=== PATIENT | female | born 1955 | race Caucasian/White ===

== ENCOUNTER → 2020-03-10 08:14 | Outpatient (BNVA) | payer MEDICARE, OTHER, SELFPAY | PROVIDERS: Family Provider Family Medicine; PCP Family Medicine; Visit Provider Specialist | DX: Z98.890 Other specified postprocedural states (principal); M17.0 Bilateral primary osteoarthritis of knee | CPT/HCPCS: 73560; 73565 ==

== ENCOUNTER → 2020-07-03 | Day surgery (SDC) | payer MEDICARE, OTHER, SELFPAY | PROVIDERS: PCP Family Medicine; Visit Provider Specialist | DX: Z01.818 Encounter for other preprocedural examination (principal); M17.11 Unilateral primary osteoarthritis, right knee | CPT/HCPCS: 93005 ==

== ENCOUNTER → 2020-07-11 12:39 | Outpatient (BNVA) | payer MEDICARE, OTHER, SELFPAY | PROVIDERS: PCP Family Medicine; Visit Provider Specialist | DX: M17.11 Unilateral primary osteoarthritis, right knee (principal) | CPT/HCPCS: 87635 ==

== ENCOUNTER 2020-07-15 10:34 | Observation (INO) | payer MEDICARE, OTHER, SELFPAY ==
[2020-07-03 11:16] LABS: Add Urine Microscopic? NO
[2020-07-03 11:21] LABS: Bilirubin Urine Neg (Negative); Blood Urine Neg (Negative); Glucose Urine UA Norm (Normal); Ketones Urine Negative (Negative); Leukocyte Esterase Urine Negative (Negative); Nitrate Urine Negative (Negative); Protein Urine Neg (Negative); Specific Gravity, Urine 1.015 (1.005-1.030); Urine Appearance Clear (CLEAR); Urine Color Yellow (Yellow); Urobilinogen Urine Norm (Negative); pH Urine 5 (5-7)
[2020-07-03 11:33] LABS: Basophils # 0.1 10^3/uL (0.0-0.1); Basophils % 0.6 %; Eosinophils # 0.2 10^3/uL (0.0-0.8); Eosinophils % 2.4 %; Hematocrit 45.5 % (37.0-47.0); Hemoglobin 14.8 g/dL (11.5-15.3); Lymphocytes # 2.1 10^3/uL (0.8-4.8); Lymphocytes % 26.4 %; Mean Corpuscular HGB Conc 32.5 g/dL (30.0-36.0); Mean Corpuscular Hemoglobin 28.8 pg (28.0-34.0); Mean Corpuscular Volume 88.5 fL (81-99); Mean Platelet Volume 9.5 fL (7.4-10.4); Monocytes % 11.8 %; Neutrophils # 4.74 10^3/uL (1.8-7.7); Neutrophils % 58.6 %; Nucleated Red Blood Cells % 0 %; Platelet Count 411 10^3/cmm (130-400); Red Blood Count 5.14 10^6/uL (4.1-5.3); Red Cell Distribution Width 12.1 % (12.1-15.1); White Blood Count 8.1 10^3/uL (4.0-10.0)
[2020-07-03 11:50] LABS: Alanine Aminotransferase 17 U/L (0-33); Albumin Level 4.5 g/dL (3.5-5.2); Alkaline Phosphatase 158 IU/L (35-105); Anion Gap 13.5 (5-19); Aspartate Amino Transferase 15 U/L (0-32); Blood Urea Nitrogen 18 mg/dL (8-23); Calcium 9.9 mg/dL (8.5-10.5); Carbon Dioxide 31 mmol/L (22-29); Chloride 98 mmol/L (98-107); Globulin 3.3 g/dL (1.3-4.6); Glomerular Filtration Rate 100.6 mL/min (90-130); Glucose 92 mg/dL (65-115); Osmolality Calculated 290 mOsm/kg (285-295); Potassium 3.5 mmol/L (3.5-5.1); Sodium 139 mmol/L (136-145); Total Bilirubin 0.3 mg/dL (0.15-1.2); Total Protein 7.8 g/dL (6.6-8.7)
--- NOTE | 2020-07-03 11:53 | ECG_ITS ---
[facility] Test Date: 2020-07-03 Pat Name: Anny Crystal Department: Room: Gender: Female Bi Tester: : 1955 Requested By: Saman Espinoza Order Number: [id number] Jeronimo MD: Latrice Skinner M.D. Measurements Intervals [place] Rate: 74 P: 17 HI: 148 QRS: -15 QRSD: 100 T: 24 QT: 370 QTc: 411 Interpretive Statements SINUS RHYTHM VOLTAGE CRITERIA FOR LVH [MEETS CRITERIA IN ONE OF: R(aVL), S(V1), R(V5), R(V5/V6)+S(V1)] POSSIBLE ANTERIOR MYOCARDIAL INFARCTION [30 ms Q WAVE IN V3/V4, OR R < 0.2 mV IN V4], PROBABLY OLD Compared to ECG 05/25/2018 10:00:37 Left ventricular hypertrophy now present Myocardial infarct finding now present Sinus tachycardia no longer present T-wave abnormality no longer present Electronically Signed On 07-04-2020 23:22:04 CDT by Latrice Skinner M.D. [id number]
[2020-07-03 12:40] VITALS: PULSE 65; RESP 18; O2SAT 95
--- NOTE | 2020-07-03 14:07 | ANES.PREANE2 ---
Pre-Anesthetic Assessment Pre-Anesthetic Assessment: Height/Weight: Height 1.57 m Weight 82.1 kg Pulse Resp Pulse Ox 65 18 95 07/03/20 12:40 07/03/20 12:40 07/03/20 12:40 Preop Diagnosis: Primary osteoarthritis right knee Proposed Procedure: Operation Date: 07/15/20 07:30 Proposed Procedures p Total Knee Arthroplasty Right 03281 M17.11(Right) - Genevieve Saucedo MD Was Beta Feliz taken within 24 hours: N/A Was Clonidine taken within 24 hours: N/A Social: Social History: No alcohol and No tobacco Exam: Pre-Anes Outpt Exam: alert, oriented x 3, clear to auscultation bilaterally and regular rate & rhythm Airway: Submandibular: WNL Cervical ROM: WNL MP: 2 GI: GI: GERD Metabolic: Metabolic: Morbid obesity Musc/skel: Musc/skel: OA/DJD Anesthetic Plan: ASA status: 2 Anesthesia: Regional (specify below) Other: SAB/adductor Risk of > 500 ml blood loss (7ml/kg in children): No PFSH Anesthesia PFSH: Medical History Degenerative arthritis of right knee GERD (gastroesophageal reflux disease) Surgical History History of arthroscopic knee surgery right knee arthroscopy with resection lateral meniscus. DOS: 01/18/[address] Smith Social History Smoking and tobacco status: never smoked Alcohol intake: never Data Anesthesia CBC & Chem 7: 07/03/20 11:28 07/03/20 11:28 Other Labs: Laboratory Results - last 48 hr 07/03/20 07/03/20 07/03/20 10:29 11:28 11:28 WBC 8.1 RBC 5.14 Hgb 14.8 Hct 45.5 MCV 88.5 MCH 28.8 MCHC 32.5 RDW 12.1 Plt Count 411 H MPV 9.5 Neut % (Auto) 58.6 Lymph % (Auto) 26.4 [place] % (Auto) 11.8 Eos % (Auto) 2.4 Baso % (Auto) 0.6 Neut # (Auto) 4.74 Lymph # (Auto) 2.1 [place] # (Auto) 1.0 H Eos # (Auto) 0.2 Baso # (Auto) 0.1 Nucleated RBC % (auto) 0 Nucleated RBCs # 0.0 Sodium 139 Potassium 3.5 Chloride 98 Carbon Dioxide 31 H Anion Gap 13.5 BUN 18 Creatinine 0.6 GFR Calculation 100.6 Glucose 92 Calculated Osmolality 290 Calcium 9.9 Total Bilirubin 0.3 AST 15 ALT 17 Alkaline Phosphatase 158 H Total Protein 7.8 Albumin 4.5 Globulin 3.3 Urine Color Yellow Urine Appearance Clear Urine pH 5 Ur Specific Mcintosh 1.015 Urine Protein Neg Urine Glucose (UA) Norm Urine Ketones Negative Urine Blood Neg Urine Nitrate Negative Urine Bilirubin Neg Urine Urobilinogen Norm Ur Leukocyte Esterase Negative Cardiac Studies: No Data to Display
[2020-07-15] VITALS (32 sets, daily range): BP systolic 117–166; BP diastolic 62–99; PULSE 51–83; RESP 15–30; TEMP 36.4–37.4; O2SAT 94–100
[2020-07-15] MEDS: acetaminophen 1,000 MG/100 ML PIGGYBACK 400 MG IV ×3 (06:24→22:28)
[2020-07-15] MEDS: sodium chloride 0.9% 1,000 ML 30 ML IV (06:24)
[2020-07-15] MEDS: CELEcoxib 200 mg Capsule 400 MG PO (06:25)
--- NOTE | 2020-07-15 06:47 | ANES.PROC ---
Anesthesia Procedures Procedure/Date: 07/15/20 Nerve Block ^: Nerve Block 1: Main Anesthesia: spinal anesthesia block Time Out Performed: Yes Consent: requested by attending/covering physician, from patient, risks and benefits reviewed and patient agrees to proceed Nerve block location: adductor canal (R) Anesthesia monitors applied: pulse oximetry, EKG, BP cuff and oxygen Nerve block position: supine Anesthetic Used: ropivicaine 0.5% and with decadron (4 mg) Amount of anesthesia used (mL): 30 Ultrasound used to: visualize and ID femerol nerve Nerve Stimulator Used?: No Interscalene/Femoral BLK: 4 stimuplex 21 g needle used for position and inplane approach, visualize local anesthetic spread and no vascular puncture identified Injection: neg aspiration of heme Patient Tolerated Procedure: well and no complications Complications: none
--- NOTE | 2020-07-15 06:49 | P.ANESUD_ITS ---
Pre-Anesthetic Update Pre-Anesthetic Assessment: Date of Surgery/Procedure: 07/15/20 Preop Sammi gnosis: Primary osteoarthritis right knee Proposed Procedure: Operation Date: 07/15/20 07:00 Proposed Procedures p Total Knee Arthroplasty Right 29681 M17.11(Right) - Genevieve Saucedo MD Any changes to Pre-Anesthetic Assessment?: No Last Intake: Intake Last Liquid Date 07/14/20 Last Liquid Time 21:00 Last Solid Date 07/14/20 Last Solid Time 21:00 Vitals: Temperature 98.1 F 07/15/20 05:57 Temperature Source Temporal Artery S can 07/15/20 05:57 Pulse Rate 73 07/15/20 05:57 Pulse Rhythm 07/15/20 05:57 Pulse Strength 3+ Normal 07/15/20 05:57 Respiratory Rate 18 07/15/20 05:57 Blood Pressure 166/93 07/15/20 05:57 Blood Pressure Radha n 117 07/15/20 05:57 Pulse Oximetry 98 07/15/20 05:57 Oxygen Delivery Me thod 07/15/20 05:57 Exam: Pre-Anes Outpt Exam: alert, oriented x 3, clear to auscultation bilaterally and regular rate & rhythm Cardiac Studies: No Data to Display
[2020-07-15] MEDS: midazolam 1 mg/mL INJ 2 mL 2 MG IVP ×2 (06:57→10:55)
--- NOTE | 2020-07-15 06:58 | P.HPUD_ITS ---
Surgery/Procedure H&P Update DATE OF PROCEDURE: July 15, 2020 DATE H&P PERFORMED: 07/02/20 H&P UPDATE INFORMATION: I have reviewed H&P completed within last 30 days, I have examined patient prior to procedure, No changes to prior documentation and H&P is in [facility] [place] date indicated PREOP DIAGNOSIS: Primary osteoarthritis right knee PLANNED PROCEDURE: Operation Date: 07/15/20 07:00 Proposed Procedures p Total Knee Arthroplasty Right 71647 M17.11(Right) - Genevieve Saucedo MD Related Problem List Diagnoses (1) Degenerative arthritis of right knee: Qualifiers: Osteoarthritis type: primary Qualified Code(s): M17.11 - Unilateral primary osteoarthritis, right knee
[2020-07-15] MEDS: vancomycin 1,000 MG in sodium chloride 0.9% 250 ML 250 MG IV (06:59)
[2020-07-15] MEDS: vancomycin 1,000 MG SDV 2000 MG IRRIGATION (07:55)
[2020-07-15] MEDS: vancomycin 1,000 MG SDV 1000 MG XX (07:55)
--- NOTE | 2020-07-15 09:42 | PM.OP ---
Operative Report Date of procedure: July 15, 2020 Pre-op Diagnosis: Primary osteoarthritis right knee Post-op diagnosis: same Post-op Findings: Significant degenerative change not only patellofemoral but also medial compartment and to a lesser degree lateral compartment Procedure Done: Right total knee arthroplasty Implants: The [employer]once total knee system with a size 4 triathlon beaded posterior stabilized femur right, a triathlon titanium tibial component size 3 beaded, a triathlon X3 posterior stabilized tibial bearing insert size 3 X 11 mm and a beaded triathlon titanium asymmetric patella size 29 x 9 mm Specimens removed/disposition: Bone, disposed of Pathology: none sent Surgeon: Genevieve Saucedo [employer] Supervisor: [employer] operating room technicians Anesthesia: MAC (With spinal and femoral block, ASA 2) Estimated blood loss (mL): 4 Tourniquet time (min): 107 Tourniquet time: At 300 mmHg IV fluids (mL): 1,000 Urine output (mL): 300 Complications: None Findings: Significant degenerative osteoarthritic change within the patellofemoral joint, but also within the medial compartment and to a lesser degree the lateral compartment. No flexion contracture. Condition: stable Disposition: PACU (Then to floor for postoperative rehabilitation and monitoring under observation status) Brief History: This 65-year-old woman presented to the office with severe right knee pain which was incapacitating. She was unable to ambulate or perform reasonable activities of daily living. None of these activities were able to be accomplished comfortably. She was unresponsive to conservative measures and wished to proceed with right total knee arthroplasty risks and complications were discussed. Consents were signed preoperatively, and questions were answered. The patient wished to proceed. Procedure: The patient was brought to the operating theater, and after undergoing adequate spinal anesthesia supplemented with regional block and sedation, ASA 2, the right lower extremity was prepped with Dura-Prep and draped in usual fashion following placement of a tourniquet high on the leg. The leg was then draped free. Following prepping and draping, the leg was exsanguinated, and the tourniquet was elevated to 300 mmHg for a total tourniquet time of 107 minutes. Prior to elevation of the tourniquet, but following exposure of the site of surgery, a surgical pause was performed. At the time of the surgical pause, we confirmed the site and side of surgery. Additionally, we confirmed the appropriate and timely administration of preoperative antibiotics, vancomycin 1 g. and Transexemic acid 1 g. The availability of equipment was confirmed, and the patient's identity was verbalized as well. Following the surgical pause, an incision was made centering over the patella continuing proximally and distally as necessary to allow access to the knee joint. Dissection continued through skin and soft tissues using a scalpel. Hemostasis was obtained using electrocautery. The skin incision was followed by a median parapatellar arthrotomy. The leg was extended and the patella was everted. Following this, the leg was returned to flexed position. The distal femur was exposed, and a drill hole was made in this for placement of the distal femoral jig. The distal femoral jig was set at 5? of valgus. The distal femoral cutting block was then placed in appropriate position, and an faraz wing was used to confirm an appropriate amount of distal femur would be resected. The distal femoral resection was accomplished with 8 mm of bone being resected distally. After the distal femoral resection had been accomplished, the femur was measured and it measured a size 4. Medial lateral dimension also measured a size 4. A size 4 femoral cutting block was placed in position, and we were then able to accomplish the anterior, posterior and chamfer cuts. This jig was then removed and the notch guide was placed in position. With the notch guide in appropriate position, the notch was excised including resection of the anterior and posterior cruciate ligaments. This notch was to allow for the posterior stabilized femoral component. At this point, the femur was prepared and attention was directed to the proximal tibia. The posterior knee retractor was placed along with medial and lateral retractors. Further resection of the menisci was accomplished as we had better visualization. A complete meniscectomy was performed both medially and laterally with care being taken to protect the popliteus. Retractors were then placed so that the proximal tibia was well visualized. A drill hole was then made in the tibia for placement of the intramedullary guide. This guide was placed so that approximately 2 mm of bone would be resected from the deficient medial tibial plateau. The intramedullary guide was utilized supplemented with an extramedullary guide to assure appropriate alignment for the proximal tibial resection. The proximal tibial jig was then evaluated, pinned in position, and the proximal tibial resection was accomplished without difficulty. The jig was removed, and the proximal tibia was measured. It measured a size 3. We then attempted a trial reduction with a size 3 by 9 mm insert. Osteophytes were also removed from the tibia. The femoral component was placed in position for the trial reduction, and the knee was placed through range of motion. With this, there was excellent stability with excellent varus-valgus alignment with appropriate patellar tracking. Extension was noted to be full as well. After the knee was manipulated, we were able to insert a size 3 x 11 mm insert. With this we continued to have excellent varus valgus alignment and full extension. Therefore, this was the chosen component. There was full extension and flexion without lift off and the rotation of the tibia was marked. Alignment was checked from the hip to the ankle, and this was noted to be appropriate as well. Attention was then directed to the patella. The patella was measured with a caliper. We resected sufficient patella to leave approximately 14 mm of patella remaining. Measurements of the patella then indicated that a size asymmetric 29 mm x 9 mm was the appropriate patellar size. We then placed the jig to drill for the 3 pegs of the press-fit patella, and these drill holes were made without incident. A trial patella was then placed, and the knee was placed through range of motion. The patella was noted to track nicely without evidence of subluxation. The femur was prepared for a press-fit femur by drilling 2 holes for the femoral pegs. All trial components were subsequently removed. The tibial tray was then pinned into position, and we broached the tibia for the stem of the tibial component. Subsequently, 4 drill holes were made for placement of the press-fit tibia. This was accomplished without difficulty. Care was taken to assure appropriate rotation of the tibia as well as appropriate position on the proximal tibia. The tibial tray was completely seated on the proximal tibia. Following broaching, the tibial guide was removed, and all surfaces were copiously irrigated. The surfaces were then dried and a bone plug was placed into the distal femur. Exparel was also injected at this point. The Tritanium tibia was impacted into position. The beaded femur was then impacted into position in a cementless fashion. The tibial insert was placed. The patella was pressed into position with a patellar clamp. The knee was irrigated with 20 mL of Betadine and 500 mL of normal saline, and this was allowed to remain in the knee for 3-4 minutes. The knee was then copiously irrigated and suctioned dry. Attention was then directed to closure. Closure was accomplished with 0 Vicryl in the fascial tissues. Following this, a 2-0 Monocryl was used in the subcutaneous tissues, and the skin was closed with skin yenny. A sterile dressing was then placed consisting of Dermabond Prineo, opsite, 4x4's, ABD, sterile soft roll, and an Victoriano wrap. The patient was returned the Recovery Room in a satisfactory condition. X-rays were obtained there. The patient will be discharged to the floor for postoperative rehabilitation and pain management. Associated Problem List Diagnoses (1) Degenerative arthritis of right knee: Qualifiers: Osteoarthritis type: primary Qualified Code(s): M17.11 - Unilateral primary osteoarthritis, right knee
--- NOTE | 2020-07-15 09:48 | XR_ITS ---
WS: [id number] RIGHT KNEE 2 VIEWS AP and cross table lateral imaging is submitted. HISTORY: Status post right total knee arthroplasty. COMPARISON: None available. Total knee replacement prosthetic devices are in good position and alignment. Normal position of the patella. Posterior patella resurfacing changes. Numerous postsurgical sutures are noted over the ant erior knee and there are normal postoperative changes in the soft tissues consistent with air, blood and edema. No complications are evident. XR/XR knee RT 1-2V 06325 IMPRESSION: Satisfactory appearance of the recent RIGHT knee arthroplasty.
--- NOTE | 2020-07-15 10:04 | SUR.PHASEI ---
0955 PT REMAINS ASLEEP DOES NOT AWAKE TO TOUCH, ORAL AIRWAY OUT PER PT, GOOD RESP EFFORT, X RAYS DONE AT BEDSIDE, RT KNEE DRESSING D/I FIRST ICE TO KNEE DISTAL FOOT PINK WARM WITH STRONG REGULAR PULSE MARKED BILAT FOOT PUMPS ON.
--- NOTE | 2020-07-15 10:25 | SUR.PHASEI ---
PT AWAKES TO VOICE NOW, PT TAKING OCC ICE CHIPS SATS 98% ON RA, DRESSING TO RT KNEE D/I PT NOT ABLE TO MOVE FEET BUT ABLE TO MOVE GROSS UPPER THIGH AREA, PT STATES NORMAL SENSATION TO T-11, HOB AT 35 DEGREES PT BP STABLE. PT SLEEPS IF NOT DISTURBED PT WAS NOTIFIED BY DR SANTOS OF PT OUTCOMES
[2020-07-15] MEDS: diphenhydrAMINE 50 mg/mL SDV 1mL 25 MG IVP (10:36)
[2020-07-15] MEDS: diphenhydrAMINE 50 mg/mL SDV 1mL (10:50)
[2020-07-15] MEDS: naloxone 0.4 mg/ml SDV 0.2 MG IVP (11:20)
[2020-07-15] MEDS: famotidine 20 mg/2 mL INJ IVP (11:44)
[2020-07-15] MEDS: naloxone 0.4 mg/ml SDV 0.1 MG IVP (12:12)
--- NOTE | 2020-07-15 12:35 | SUR.PHASEI ---
1030 PT ALERT TO NAME ONLY, PT SCRATCHING HEAD AND ARMS AND CHEST, PT ENCOURAGED NOT TO SCRATCH, PT IS UNCONTROLLABLE, NO RASH OR WHELPS TO CHEST OR HANDS, BUT RED AREAS AND IRRITATION FROM PT SCRATCHING. DR HANDY AT BEDSIDE SEE MEDS GIVEN JPT UNCONTROLLABLE, PT SCRATGHING AND CLAWING CHEST HEAD AND ARMS, PLACED SURGICAL GLOVES ON PT AND DR HANDY AND DR SANTOS AT BEDSIDE SEE MEDS GIVEN PT AWAKE ON 3LNC NOW AFTER VERSED PT WILD AND SCRATCHING AGAIN, PT CONFUSED TO ALL BUT SELF AND ITCHING, SEE MED GIVEN TO REVERSE POSSIBLE FENTANYL ALLERGY ORDERED BY DR HANDY AT BEDSIDE, VSS 1208 [place] 20MG GIVEN ORDERED PT AWAKE ALERT TAKING SIPS OF WATER, REMAINS CONFUSED TO PLACE AND TIME AND EARLIER SURGERY BUT FOLLOWS COMMANDS WELL STATES NORMAL SENSATION TO T-13 LEVEL PT ABLE TO MOVE BILAT THIGHS ONLY 1212 NARCAN REPEATED IVP PER DR HANDY'S ORDER , PT ITCHING UNCHANGED BUT PT MORE DROWSY
--- NOTE | 2020-07-15 13:03 | SUR.PHASEI ---
1233 PT UPDATED EARLIER AT 1115 NO PROBLEMS VOICED AND PT UPDATED AT 1233 PRIOR TO TAKING PT UPSTAIRS, PT SLEEPS NOW UNLESS AWAKENED BY NURSE OR BP CUFF, PT ITCHES IF AWAKENED BUT CALMER NOW 1245 HANDOFF AT BEDSIDE TO VANITA ON FLOOR PT AWAKES AND VERBALIZED TO NURSE VANITA, BUT QUICKLY BACK TO SLEEP SATS 98% ON 3LNC.
--- NOTE | 2020-07-15 13:09 | PC.NURSE ---
Addendum entered by Nuria Beach RN 07/15/20 13:23: 1ST ICE IN PLACE TO RIGHT KNEE - PT BASELINE IS ALERT AND ORIENTATED Original Note: OR NOTE UP FROM - PT WILL AWAKEN EYES TO PAINFUL STIMULI ONLY - VSS - 02 NC AT 2L - ONCE AWAKE PT IMMEDIATELY STARTS TO SCRATCH - SCATTERED REDNESS TO CHEST AND FACE - SMALL OPEN AREA TO RIGHT ARM - GLOVES REMAIN ON PT PT HAS LONG NAILS TO TRY TO PREVENT FURTHER SKIN INJURY - AP RRR - LUNGS CTA - IV PATENT VIA PUMP TO RIGHT FA - BULKY RIGHT KNEE DRESSING C/D/I WITH NO DRAINAGE NOTED - BILE FOOT PUMPS IN PLACE WITH JERALD TO LEFT LEG - AWAITING 1:1 SITTER
[2020-07-15] MEDS: oxyCODONE 5 mg IR Tab/Cap PO (14:53)
--- NOTE | 2020-07-15 16:45 | PC.NURSE ---
1:1 discontinued 1:1 discontinued - pt awake, alert and orientated - able to state name, date, place and situation - pt states I am itching but i will not dig at my skin -
[2020-07-15] MEDS: chlorhexidine gluconate 0.12% Btl 473 mL 30 ML MUCOUS MEM ×2 (17:23→20:31)
[2020-07-15] MEDS: sennosides-docusate Tablet 2 TAB PO (17:24)
[2020-07-15] MEDS: calcium carbonate 500 mg Chew Tablet 1000 MG PO (17:24)
[2020-07-15] MEDS: iron polysaccharide complex 150 mg Capsule PO (17:24)
[2020-07-15] MEDS: aspirin 325 mg EC Tablet PO (17:24)
[2020-07-15] MEDS: CELEcoxib 200 mg Capsule PO (17:28)
--- NOTE | 2020-07-15 18:20 | PC.NURSE ---
1800 REMOVED PT FROM CPM - DARRELL WELL - PT REMAINS ALERT AND ORIENTATED - STATES SHE DOES HAVE SLIGHT ITCHING BUT DOES NOT FEEL THE NEED TO CLAW
--- NOTE | 2020-07-15 19:07 | ANE.PACU2 ---
Inpatient post-anesthesia follow up: Airway intact: Yes Vital signs: Temperature 99.4 F Pulse Rate 83 Respiratory Rate 18 Blood Pressure 143/85 Pulse Oximetry 100 Oxygen Delivery Me thod Nasal Cannula Oxygen Flow Rate 2 Fraction of Inspir ed Oxygen Hydration adequate: Yes Nausea and vomiting: No Pain level: 3 Pain level: severe itching Mental status: Altered Additional Comments: sleepy but arousable
[2020-07-15] MEDS: sodium chloride 0.9% 1,000 ML 100 ML IV (20:31)
[2020-07-15] MEDS: clindamycin 600 MG/50 ML PREMIX 100 MG IV (20:31)
[2020-07-15] MEDS: TRAMadol 50 mg Tablet PO (22:29)
[2020-07-16] MEDS: clindamycin 600 MG/50 ML PREMIX 100 MG IV ×2 (04:08→10:50)
[2020-07-16 04:36] VITALS: BP 125/62; PULSE 71; RESP 17; TEMP 37.1; O2SAT 97
[2020-07-16] MEDS: CELEcoxib 200 mg Capsule PO (05:47)
[2020-07-16] MEDS: acetaminophen 1,000 MG/100 ML PIGGYBACK 400 MG IV (05:47)
[2020-07-16 06:57] LABS: Basophils % 0.3 %; Eosinophils # 0.1 10^3/uL (0.0-0.8); Eosinophils % 0.6 %; Hematocrit 35.9 % (37.0-47.0); Hemoglobin 11.6 g/dL (11.5-15.3); Lymphocytes # 2.5 10^3/uL (0.8-4.8); Lymphocytes % 22.2 %; Mean Corpuscular HGB Conc 32.3 g/dL (30.0-36.0); Mean Corpuscular Volume 89.8 fL (81-99); Mean Platelet Volume 9.8 fL (7.4-10.4); Monocytes # 1.6 10^3/uL (0.2-0.9); Monocytes % 14.9 %; Neutrophils # 6.83 10^3/uL (1.8-7.7); Neutrophils % 61.8 %; Nucleated Red Blood Cells % 0 %; Platelet Count 297 10^3/cmm (130-400); Red Cell Distribution Width 12.5 % (12.1-15.1)
[2020-07-16 07:22] LABS: Anion Gap 10.9 (5-19); Blood Urea Nitrogen 17 mg/dL (8-23); Calcium 8.5 mg/dL (8.5-10.5); Carbon Dioxide 26 mmol/L (22-29); Chloride 105 mmol/L (98-107); Glomerular Filtration Rate 160.7 mL/min (90-130); Glucose 100 mg/dL (65-115); Osmolality Calculated 288 mOsm/kg (285-295); Potassium 3.9 mmol/L (3.5-5.1); Sodium 138 mmol/L (136-145)
[2020-07-16 08:00] VITALS: BP 111/72; PULSE 60; RESP 18; TEMP 36.9; O2SAT 95
[2020-07-16] MEDS: cholecalciferol (vitamin D3) 1,000 unit Tablet 1000 UNIT PO (08:28)
[2020-07-16] MEDS: chlorhexidine gluconate 0.12% Btl 473 mL 30 ML MUCOUS MEM ×2 (08:28→12:43)
[2020-07-16] MEDS: calcium carbonate 500 mg Chew Tablet 1000 MG PO (08:28)
[2020-07-16] MEDS: aspirin 325 mg EC Tablet PO (08:28)
[2020-07-16] MEDS: multivitamin therapeutic Tablet 1 TAB PO (08:29)
[2020-07-16] MEDS: pantoprazole DR 40 mg Tablet PO (08:29)
[2020-07-16] MEDS: iron polysaccharide complex 150 mg Capsule PO (08:29)
[2020-07-16] MEDS: sennosides-docusate Tablet 2 TAB PO (08:29)
--- NOTE | 2020-07-16 10:01 | PC.NURSE ---
PHYSICAL THERAPY UP WITH PT - PT BECAME HYPOTENSIVE WITH A BP 90/50 - DIZZY - HEART RATE AT 38-44 - RETURNED TO LAYING POSITION - HEART RATE AT 63 - PT STATES I FEEL BETTER NOW - WILL MONITOR
[2020-07-16 12:00] VITALS: BP 156/82; PULSE 71; RESP 18; TEMP 36.8; O2SAT 96
[2020-07-16] MEDS: acetaminophen 500 mg Tablet 1000 MG PO (12:43)
--- NOTE | 2020-07-16 13:33 | P.DS_ITS ---
Discharge Providers Date of Admission: 07/15/20 10:34 Date of Discharge: July 16, 2020 Attending Provider at Admission: Genevieve Saucedo MD Attending Provider at Discharge: Genevieve Saucedo MD Primary Care Provider: Constance Rodríguez MD Diagnoses at Discharge Discharge Diagnosis (1) Degenerative arthritis of right knee: Status: Acute Qualifiers: Osteoarthritis type: primary Qualified Code(s): M17.11 - Unilateral primary osteoarthritis, right knee Reason for Visit Reason for Visit: knee arthroplasty Hospital Course Hospital Course This 65-year-old woman was admitted yesterday, July 15, 2020 for same-day surgery. She underwent right total knee arthroplasty uneventfully. She was admitted to the floor postoperatively for monitoring and postoperative e valuation. While in the recovery room, the patient had significant itching which caused her to scratch quite deeply. There was some concern that she may have been allergic to the vancomycin which she was given. She had not had previous allergy or history of reaction with this drug, however. This was resolved on the first postoperative day when the patient was seen. She was in her room and was ready for discharge. Her dressing was removed. Her wound was benign. Calf was soft and nontender. There was no evidence of DVT. She will be discharged to home with home health. Physical Exam Const: COMMON NORMALS: no acute distress, average body habitus, patient oriented x3 and alert GENERAL APPEARANCE: cooperative and comfortable ORIENTATION/CONSCIOUSNESS: Yes awake HENMT: COMMON NORMALS: normocephalic and atraumatic HEAD & SCALP: normocephalic and atraumatic Eye: GENERAL EYE: appearance normal, both eyes and all related structures Chest: COMMONS NORMALS: normal inspection of the chest Resp: COMMON NORMALS: normal respiratory effort EFFORT & INSPECTION: Yes able to speak in complete sentences and Yes symmetric chest movement Extremity: RIGHT LOWER EXTREMITY: Yes knee joint Right knee: Yes inspection (Dressing is removed. It is intact with no evidence of drainage or swelling), Yes palpation (Minimal tenderness.), Yes ROM (Not evaluated, patient is able to straight leg raise) and Yes neurovascular exam (Intact with no evidence of DVT) Neuro: COMMON NORMALS: patient oriented x3 SENSORIUM/ORIENTATION: Yes alert Psych: COMMON NORMALS: mental status grossly normal APPEARANCE: Yes grossly normal ATTITUDE: Yes calm and Yes engaged ATTENTION/CONCENTRATION: Yes attention grossly intact Skin: COMMON NORMALS: no rashes or lesions noted GENERAL SKIN EXAM: no rashes or lesions noted Urinary Catheter Management^: F: Cath Placed During This Visit: yes, but has since been removed by the nurse Reason for Continuing Indwelling Catheter: Decision to DC Catheter Urinary Catheter Date of Insertion: 07/15/20 Urinary Catheter Time of Insertion: 07:20 Date Urinary Catheter Removed: 07/16/20 Time Urinary Catheter Discontinued: 06:33 Discharge Data Data Completed and Pending: Completed Studies During Hospitalization Category Date Time Status XR knee RT 1-2V 7 3560 Urgent Exams 07/15/20 09:48 Completed Pending at discharge Category Date Time Status Complete Blood Co unt w/Auto AM LABS Lab 07/17/20 04:00 Uncollected Complete Blood Co unt w/Auto AM LABS Lab 07/18/20 04:00 Uncollected Labs from last 24 hours 07/16/20 07/16/20 06:44 06:44 WBC 11.0 H RBC 4.00 L Hgb 11.6 Hct 35.9 L MCV 89.8 MCH 29.0 MCHC 32.3 RDW 12.5 Plt Count 297 MPV 9.8 Neut % (Auto) 61.8 Lymph % (Auto) 22.2 [place] % (Auto) 14.9 Eos % (Auto) 0.6 Baso % (Auto) 0.3 Neut # (Auto) 6.83 Lymph # (Auto) 2.5 [place] # (Auto) 1.6 H Eos # (Auto) 0.1 Baso # (Auto) 0.0 Nucleated RBC % (a uto) 0 Nucleated RBCs # 0.0 Sodium 138 Potassium 3.9 Chloride 105 Carbon Dioxide 26 Anion Gap 10.9 BUN 17 Creatinine 0.4 L GFR Calculation 160.7 H Glucose 100 Calculated Osmolal ity 288 Calcium 8.5 Procedures Performed: Right total knee arthroplasty Implants: The 1CLICK total knee system with a size 4 triathlon beaded posterior stabilized femur right, a triathlon titanium tibial component size 3 beaded, a triathlon X3 posterior stabilized tibial bearing insert size 3 X 11 mm and a beaded triathlon titanium asymmetric patella size 29 x 9 mm Vitals: Last Vital Signs Temp 98.2 F 07/16/20 12:00 Pulse 71 07/16/20 12:00 Resp 18 07/16/20 12:00 BP 156/82 07/16/20 12:00 Pulse Ox 96 07/16/20 12:00 Discharge Plan Discharge Patient Disposition: Home Health Service Condition: Stable Prescriptions: New oxycodone 5 mg Tablet 5 mg PO Q4H PRN (Reason: Moderate Pain) 7 Days Qty: 30 RF: 0 acetaminophen 500 mg Tablet 1,000 mg PO Q8H 30 Days Qty: 180 RF: 0 aspirin 325 mg Tablet,Delayed Release (Dr/Ec) 325 mg PO BID 30 Days Qty: 60 RF: 0 celecoxib 200 mg Capsule 200 mg PO Q12H Qty: 60 RF: 0 Continued multivitamin [One-A-Day Essential] Tablet 1 tab PO DAILY RF: 0 omeprazole 40 mg capsule,delayed release(DR/EC) 40 mg PO DAILY RF: 0 acetaminophen [Tylenol Extra Strength] 500 mg tablet 500 mg PO Q6H PRN (Reason: Pain) RF: 0 Held meloxicam 15 mg tablet 15 mg PO DAILY RF: 0 Hold Instructions: Resume on 08/15/20. Resume after completion of Celebrex Discharge Orders: Discharge Order (Routine); Ordered 07/16/20 Ordered By: Genevieve Saucedo Other Ambulatory Orders: DME: Walker (Order) Location: None Selected Ordered By: Genevieve Saucedo Referrals: Genevieve Saucedo MD [Physician] - 07/30/20 9:15 am Discharge Diet: Advance as tolerated and Usual diet Discharge Activity: Resume usual activity, Increase activity as tolerated, Limit activity as instructed and Use walker/crutches as instructed Activity Restrictions/Additional Instructions: Elevate right lower extremity. Range of motion, gait, and strengthening per physical therapy. Maintain dressing. Do not immerse your leg in water. Discharge Attestations Time Spent in Discharge Care*: less than 30 min Specific Discharge Activities: educating patient and documenting/other paperwork Quality Metrics Clinical Quality Measures During this hospital stay, did patient experience: None Coding Level of Care Code Acute g [facility] note Exam Comprehensive Diagnoses Degenerative arthritis of right knee M17.11 Osteoarthritis type: primary
--- NOTE | 2020-07-16 14:13 | PC.NURSE ---
DISCHARGE INSTRUCTIONS DISCHARGE INSTRUCTIONS REVIEWED WITH BOTH PATIENT AND - AGAIN, EDUCATED PT TO NEED FOR HOME HEALTH HAS BEEN DONE MULTIPLE TIMES SINCE ADMIT TO FLOOR - PT CONTINUES TO DENY IT -
[2020-07-16 14:14] VITALS: BP 156/82; PULSE 71; RESP 18; TEMP 36.8; O2SAT 96
== END 2020-07-16 14:15 | disposition home health service (06) ==
LOC: MEDSURG 10:35
PROVIDERS: Admitting Provider Specialist; PCP Family Medicine; Visit Provider Specialist
PROC: (CPT 27447; principal; 2020-07-15 07:00)
DX: M17.11 Unilateral primary osteoarthritis, right knee (principal); K21.9 Gastro-esophageal reflux disease without esophagitis; E66.01 Morbid (severe) obesity due to excess calories; Z68.33 Body mass index [BMI] 33.0-33.9, adult
CPT/HCPCS: 27447; 36415; 51702; 64447; 73560; 76942; 80048; 80053; 81003; 85025; 96365; 96374; 97110; 97116; 97161; 97165; 97530; C1776; C9290; G0378; J1100; J1200; J2250; J2310; J2405; J2704; J2795; J3010; J3370; J3490; J7030; J7050

== ENCOUNTER → 2020-07-30 10:25 | Outpatient (BNVA) | payer MEDICARE, OTHER, SELFPAY | PROVIDERS: PCP Family Medicine; Visit Provider Specialist | DX: M17.0 Bilateral primary osteoarthritis of knee (principal); Z96.651 Presence of right artificial knee joint | CPT/HCPCS: 73560; 73565 ==

== ENCOUNTER 2021-03-28 08:45 | Outpatient (CLI) | payer MEDICARE, OTHER, SELFPAY ==
[2021-03-28 08:43] VITALS: BP 177/98; PULSE 78; RESP 16; TEMP 36.9; O2SAT 97; BMI 29.2
[2021-03-28 08:52] VITALS: BMI 29.2
[2021-03-28 09:09] VITALS: BP 155/96; PULSE 73; RESP 18; TEMP 36.9; O2SAT 98
[2021-03-28 09:55] VITALS: BP 155/92; PULSE 86; RESP 17; TEMP 36.6; O2SAT 98
== END 2021-03-28 08:46 | disposition home or self-care (01) ==
PROVIDERS: PCP Family Medicine; Visit Provider Nurse Practitioner Family
DX: U07.1 COVID-19 (principal)
CPT/HCPCS: 96365

== ENCOUNTER 2021-09-28 07:25 | Outpatient (CLI) | payer MEDICARE, OTHER, SELFPAY ==
--- NOTE | 2021-09-28 | XR_ITS ---
WS: [id number] LEFT HIP HISTORY: HIP PAIN CHRONIC LEFT COMPARISON: 12/31/2018 LEFT hip: Very minimal sclerosis involving the superior acetabulum and osteophytic ridging. Very mini mal narrowing of the joint space. No destructive bone lesions. XR/XR hip LT 2-3V wo/w pel* [id number] IMPRESSION: 1. No hip fracture. 2. Very minimal osteoarthritis at the LEFT hip. Mild progression since 01/01/20 19
== END 2021-09-28 07:26 | disposition home or self-care (01) ==
LOC: RADOUTREAD 09-29 07:29
PROVIDERS: PCP Family Medicine; Visit Provider Family Medicine
DX: M25.552 Pain in left hip (principal)
CPT/HCPCS: 73502

== ENCOUNTER 2022-03-08 18:50 | Emergency (ER) | payer MEDICARE, OTHER, SELFPAY ==
[2022-03-08 19:01] VITALS: BP 135/79; PULSE 90; RESP 17; TEMP 36.9; O2SAT 100; BMI 31.1
--- NOTE | 2022-03-08 19:22 | ECG_ITS ---
[facility] Test Date: 2022-03-08 Pat Name: Anny Crystal Department: Room: Gender: Female Injection Molding Operator: : 1955 Requested By: Rachel Madsen Order Number: [id number] Jeronimo MD: Latrice Skinner M.D. Measurements Intervals [place] Rate: 84 P: 39 KS: 148 QRS: 12 QRSD: 104 T: 31 QT: 365 QTc: 431 Interpretive Statements SINUS RHYTHM POSSIBLE LEFT ATRIAL ENLARGEMENT [-0.1mV P-WAVE IN V1/V2] POSSIBLE ANTERIOR MYOCARDIAL INFARCTION , PROBABLY OLD [30 ms Q WAVE IN V3/V4, OR R < 0.2 mV IN V4] Compared to ECG 07/03/2020 12:05:13 Left ventricular hypertrophy no longer present Myocardial infarct finding still present Electronically Signed On 03-09-2022 20:33:39 STATEMENT SERVICES REPRESENTATIVE by Latrice Skinner M.D. [id number]
--- NOTE | 2022-03-08 19:22 | XRR_ITS ---
PROCEDURE INFORMATION: Exam: XR Chest Exam date and time: 03/08/2022 8:33 PM Age: 67 years old Clinical indication: Chest pressure and chest wall pain; Additional info: Cp TECHNIQUE: Imaging protocol: Radiologic exam of the chest. Views: 1 view. COMPARISON: CR XR chest 1V [id number] 05/25/2018 10:22 AM FINDINGS: Lungs: Unremarkable. No consolidation. Pleural spaces: Unremarkable. No pleural effusion. No pneumothorax. Heart/Mediastinum: Unremarkable. No cardiomegaly. Bones/joints: Unremarkable. XR/XR chest 1V portable [id number] IMPRESSION: No acute findings.
--- NOTE | 2022-03-08 19:26 | W.ED.NAVMDI ---
HPI - Nausea/Vomiting/Diarrhea General: Chief complaint: Nausea/Vomiting/Diarrhea Stated complaint: POST HIP SURGERY COMPLICATIONS Time Seen by Provider: 03/08/22 18:57 Source: patient Mode of arrival: ambulatory Limitations: no limitations History of Present Illness: 67-year-old female states that over the last 1 to 2 months she has been having these episodes where she feels nauseous and feels like she will vomit gets diaphoretic and hot and has some near syncopal events. States that being on for months she states she did have a hip replacement last week states that today she believes is completely unrelated to her surgery but has had 3 episodes of that feeling where she was extremely nauseous and diaphoretic she denies any chest pain denies any abdominal pain denies any headache denies any worsening improving factors. Associated nausea: Yes Associated symtoms: Reports nausea; Denies dysuria or headache(s) Review of Systems Const: Denies: fever(s), chills, body aches or change in appetite Eyes: Denies: blurry vision or eye discomfort ENMT: Denies: throat pain or dental pain Card: Reports: lightheadedness Resp: Denies: dyspnea GI: Reports: nausea and vomiting : Denies: dysuria Musc: Denies: neck pain or back pain Skin/Breast: Denies: rash Neuro: Denies: headache(s) Psych: Denies: depression Jordy/Lymph: Denies: easy bruising All/Imm: Denies: urticaria PFSH ED PFSH: Medical History (Updated 03/08/22 @ 21:13 by Rachel Madsen MD) Degenerative arthritis of right knee GERD (gastroesophageal reflux disease) Surgical History History of arthroscopic knee surgery right knee arthroscopy with resection lateral meniscus. DOS: 01/18/[address] Smith Social History Smoking and tobacco status: never smoked Alcohol intake: never Physical Exam Const: COMMON NORMALS: no acute distress, patient oriented x3 and healthy appearing HENMT: COMMON NORMALS: normocephalic and atraumatic HEAD & SCALP: normocephalic and atraumatic Eye: COMMON NORMALS: Equal, round and reactive pupils present and EOMs intact bilaterally PUPIL: Yes Equal, round and reactive pupils present Neck/C-Spine: COMMON NORMALS: full ROM and supple Chest: COMMONS NORMALS: normal inspection of the chest and normal palpation of entire chest wall Resp: COMMON NORMALS: normal respiratory effort, No retractions, No use of accessory muscles and clear to auscultation bilaterally AUSCULTATION: clear to auscultation bilaterally Cardio: COMMON NORMALS: regular rate, regular rhythm and No murmurs present (Cardio) RATE: regular rate RHYTHM: regular rhythm GI: COMMON NORMALS: Normal to inspection, nondistended, normoactive bowel sounds present, Soft to palpation, non-tender and no masses PALPATION: Yes Soft to palpation Extremity: COMMON NORMALS: full ROM NARRATIVE EXTREMITY EXAM: incision c/d/i to left hip Neuro: COMMON NORMALS: patient oriented x3, moves all extremities and no focal motor deficits Psych: COMMON NORMALS: mental status grossly normal, Normal thought process present and cooperative THOUGHT PROCESS: Normal thought process present Skin: COMMON NORMALS: no rashes or lesions noted and no wounds GENERAL SKIN EXAM: no rashes or lesions noted Course Vital Signs: Vital signs: Vital Signs Temperature 98.5 F 03/08/22 19:01 Pulse Rate 90 03/08/22 19:01 Respiratory Rate 17 03/08/22 19:01 Blood Pressure 135/79 03/08/22 19:01 Pulse Oximetry 100 03/08/22 19:01 Oxygen Delivery Me thod 03/08/22 19:01 MDM - Nausea/Vomiting/Diarrhea Medical Decision Making Patient presents here with vomiting also near syncopal event she is well-appearing her blood work including EKGs are all normal she feels improved here we will prescribe her Zofran she is to follow-up with PCP and return if worsening. Lab Data 03/08/22 20:39 03/08/22 20:39 Radiology Impressions Chest X-Ray 03/08/22 19:22 IMPRESSION: No acute findings. Laboratory Results WBC 11.2 10^3/uL (4.0-10.0) H 03/08/22 20:39 RBC 3.31 10^6/uL (4.1-5.3) L 03/08/22 20:39 Hgb 10.1 g/dL (11.5-15.3) L 03/08/22 20:39 Hct 31.0 % (37.0-47.0) L 03/08/22 20:39 MCV 93.7 fl (81-99) 03/08/22 20:39 MCH 30.5 pg (28.0-34.0) 03/08/22 20:39 MCHC 32.6 g/dL (30.0-36.0) 03/08/22 20:39 RDW 12.1 % (12.1-15.1) 03/08/22 20:39 Plt Count 540 10^3/cmm (130-400) H 03/08/22 20:39 MPV 8.9 fL (7.4-10.4) 03/08/22 20:39 Neut % (Auto) 73.9 % 03/08/22 20:39 Lymph % (Auto) 15.5 % 03/08/22 20:39 [place] % (Auto) 9.6 % 03/08/22 20:39 Eos % (Auto) 0.2 % 03/08/22 20:39 Baso % (Auto) 0.4 % 03/08/22 20:39 Neut # (Auto) 8.30 10^3/uL (1.8-7.7) H 03/08/22 20:39 Lymph # (Auto) 1.7 10^3/uL (0.8-4.8) 03/08/22 20:39 [place] # (Auto) 1.1 10^3/uL (0.2-0.9) H 03/08/22 20:39 Eos # (Auto) 0.0 10^3/uL (0.0-0.8) 03/08/22 20:39 Baso # (Auto) 0.1 10^3/uL (0.0-0.1) 03/08/22 20:39 Nucleated RBC % (auto) 0 % 03/08/22 20:39 Nucleated RBCs # 0.0 /100WBC 03/08/22 20:39 Sodium 137 mmol/L (136-145) 03/08/22 20:39 Potassium 3.7 mmol/L (3.5-5.1) 03/08/22 20:39 Chloride 102 mmol/L (98-107) 03/08/22 20:39 Carbon Dioxide 22 mmol/L (22-29) 03/08/22 20:39 Anion Gap 16.7 (5-19) 03/08/22 20:39 BUN 20 mg/dL (8-23) 03/08/22 20:39 Creatinine 0.5 mg/dL (0.5-0.9) 03/08/22 20:39 GFR Calculation 123.4 mL/min (90-130) 03/08/22 20:39 Glucose 112 mg/dL (65-115) 03/08/22 20:39 Calculated Osmolality 287 mOsm/kg (285-295) 03/08/22 20:39 Calcium 9.1 mg/dL (8.5-10.5) 03/08/22 20:39 Total Bilirubin 0.2 mg/dL (0.15-1.2) 03/08/22 20:39 AST 14 U/L (0-32) 03/08/22 20:39 ALT 16 U/L (0-33) 03/08/22 20:39 Alkaline Phosphatase 123 U/L (35-105) H 03/08/22 20:39 Troponin T Baseline 7 ng/L (0-10) 03/08/22 20:39 Total Protein 6.4 g/dL (6.6-8.7) L 03/08/22 20:39 Albumin 3.8 g/dL (3.5-5.2) 03/08/22 20:39 Globulin 2.6 g/dL (1.3-4.6) 03/08/22 20:39 Lipase 32 U/L (13-60) 03/08/22 20:39 EKG Data EKG 1: I personally reviewed and interpreted this EKG as follows: EKG interpretation date: 03/08/22 EKG interpretation time: 19:31 Interpretation: nsr hr [address] or t wave abnormalities qrs 104 qtc 405 Discharge Plan Discharge Patient Disposition: Home Clinical Impression: Vomiting Condition: Stable Prescriptions: New ondansetron 4 mg tablet,disintegrating 4 mg PO Q6H PRN (Reason: nausea and vomiting) Qty: 14 0RF No Action multivitamin [One-A-Day Essential] Tablet 1 tab PO DAILY omeprazole 40 mg capsule,delayed release(DR/EC) 40 mg PO DAILY meloxicam 15 mg tablet 15 mg PO DAILY Hold Instructions: Resume on 08/15/20. Resume after completion of Celebrex acetaminophen [Tylenol Extra Strength] 500 mg tablet 500 mg PO Q6H PRN (Reason: Pain) Discharge Orders: Discharge ED (Routine); Ordered 03/08/22 Ordered By: Rachel Madsen Referrals: Constance Rodríguez MD [Primary Care Provider] - Discharge Diet: Advance as tolerated Discharge Activity: Resume usual activity Patient Instructions: Acute Nausea and Vomiting (ED) Coding Level of Care Code ED Conveyor Installer for Chg Fwd Exam Comprehensive
[2022-03-08 19:30] VITALS: BP 129/82; PULSE 83; RESP 16; O2SAT 100
[2022-03-08 20:00] VITALS: BP 119/79; PULSE 80; RESP 15; O2SAT 100
[2022-03-08 20:47] LABS: Basophils # 0.1 10^3/uL (0.0-0.1); Basophils % 0.4 %; Eosinophils % 0.2 %; Hemoglobin 10.1 g/dL (11.5-15.3); Lymphocytes # 1.7 10^3/uL (0.8-4.8); Lymphocytes % 15.5 %; Mean Corpuscular HGB Conc 32.6 g/dL (30.0-36.0); Mean Corpuscular Hemoglobin 30.5 pg (28.0-34.0); Mean Corpuscular Volume 93.7 fl (81-99); Mean Platelet Volume 8.9 fL (7.4-10.4); Monocytes # 1.1 10^3/uL (0.2-0.9); Monocytes % 9.6 %; Neutrophils % 73.9 %; Nucleated Red Blood Cells % 0 %; Platelet Count 540 10^3/cmm (130-400); Red Blood Count 3.31 10^6/uL (4.1-5.3); Red Cell Distribution Width 12.1 % (12.1-15.1); White Blood Count 11.2 10^3/uL (4.0-10.0)
[2022-03-08 21:04] LABS: Troponin(5th) Baseline 7 ng/L (0-10)
[2022-03-08 21:08] LABS: Alanine Aminotransferase 16 U/L (0-33); Albumin Level 3.8 g/dL (3.5-5.2); Alkaline Phosphatase 123 U/L (35-105); Anion Gap 16.7 (5-19); Aspartate Amino Transferase 14 U/L (0-32); Blood Urea Nitrogen 20 mg/dL (8-23); Calcium 9.1 mg/dL (8.5-10.5); Carbon Dioxide 22 mmol/L (22-29); Chloride 102 mmol/L (98-107); Globulin 2.6 g/dL (1.3-4.6); Glomerular Filtration Rate 123.4 mL/min (90-130); Glucose 112 mg/dL (65-115); Lipase 32 U/L (13-60); Osmolality Calculated 287 mOsm/kg (285-295); Potassium 3.7 mmol/L (3.5-5.1); Sodium 137 mmol/L (136-145); Total Bilirubin 0.2 mg/dL (0.15-1.2); Total Protein 6.4 g/dL (6.6-8.7)
--- NOTE | 2022-03-08 21:22 | ECG_ITS ---
[facility] Test Date: 2022-03-08 Pat Name: Anny Crystal Department: Room: Gender: Female Photography Coordinator: : 1955 Requested By: Rachel Madsen Order Number: [id number] Jeronimo MD: Latrice Skinner M.D. Measurements Intervals [place] Rate: 74 P: 32 [place]: 157 QRS: 6 QRSD: 101 T: 26 QT: 385 QTc: 429 Interpretive Statements SINUS RHYTHM POSSIBLE LEFT ATRIAL ENLARGEMENT [-0.1mV P-WAVE IN V1/V2] POSSIBLE LEFT VENTRICULAR HYPERTROPHY [VOLTAGE CRITERIA PLUS LAE OR QRS WIDENING] POSSIBLE ANTERIOR MYOCARDIAL INFARCTION , PROBABLY OLD [30 ms Q WAVE IN V3/V4, OR R < 0.2 mV IN V4] Compared to ECG 03/08/2022 19:31:02 No significant changes Electronically Signed On 03-09-2022 20:43:09 INSEAM TRIMMING MACHINE OPERATOR by Latrice Skinner M.D. [id number]
[2022-03-08 21:55] VITALS: PULSE 81; RESP 16; O2SAT 100
== END 2022-03-08 21:57 | disposition home or self-care (01) ==
PROVIDERS: Emergency Provider Emergency Medicine; PCP Family Medicine
DX: R11.11 Vomiting without nausea (principal)
CPT/HCPCS: 71045; 80053; 83690; 84484; 85025; 93005; 99285

== ENCOUNTER 2022-05-04 15:27 | Outpatient (CLI) | payer MEDICARE, OTHER, SELFPAY ==
--- NOTE | 2022-05-04 15:52 | MR_ITS ---
WS: [id number] MRI RIGHT SHOULDER NONCONTRAST TECHNIQUE: Sagittal T2, coronal T1, T2 and proton density imaging. Axial gradient PDE imaging. CLINICAL INFORMATION: ROTATOR CUFF INJURY COMPARISON: None. FINDINGS: Advanced degenerative narrowing glenohumeral joint. Subchondral cystic change involving the greater t uberosity. Moderate subacromial narrowing. Mild edema at the AC joint with a small amount of fluid. I mpingement on the distal supraspinatus. Small joint effusion. High-grade complete tear of the supraspinatus with tendon retraction measuring approximately 9.5 mm. Mild atrophy of the infraspinatus which appears intact. Normal teres minor. Subscapularis appears in tact. Normal biceps tendon in the bicipital groove. Biceps labral anchor appears intact. Degenerative fraying of the glenoid labrum. Hypertrophic spurring at the glenoid. Intra-articular biceps tendon a ppears intact. Tendinopathy intra-articular biceps tendon. MR/MR shoulder RT wo con* [id number] IMPRESSION: 1. High-grade complete tear of the distal supraspinatus with tendon retraction measuring approximately 9.5 mm. Mild chronic atrophy of the supraspinatus. 2. Rotator cuff is otherwise intact with mild atrophy of the infraspinatus. 3. Small joint effusion. 4. Biceps tendon is intact within the bicipital groove. 5. Biceps labral anchor and intra-articular biceps tendon appear intact. 6. Mild tendinopathy involving the intra-articular biceps tendon. 7. Advanced degenerative narrowing glenohumeral joint with hypertrophic spurri ng. 8. Moderate narrowing of the subacromial space with edema at the AC joint.
== END 2022-05-04 15:28 | disposition home or self-care (01) ==
LOC: RAD 15:30
PROVIDERS: PCP Family Medicine; Visit Provider Family Medicine
DX: M75.121 Complete rotator cuff tear or rupture of right shoulder, not specified as traumatic (principal); M25.411 Effusion, right shoulder; R60.0 Localized edema
CPT/HCPCS: 73221

== ENCOUNTER → 2023-03-15 13:42 | Outpatient (BNVA) | payer MEDICARE, OTHER, SELFPAY | PROVIDERS: PCP Family Medicine; Visit Provider Dermatology | DX: L82.1 Other seborrheic keratosis (principal); L57.8 Other skin changes due to chronic exposure to nonionizing radiation; L82.0 Inflamed seborrheic keratosis; L57.0 Actinic keratosis | CPT/HCPCS: 17000; 17110; 99203 ==

== ENCOUNTER → 2023-12-20 09:00 | Outpatient (BNVA) | payer MEDICARE, OTHER, SELFPAY | PROVIDERS: PCP Family Medicine; Referring Provider Family Medicine; Visit Provider Psychiatry & Neurology Neurology | DX: E55.9 Vitamin D deficiency, unspecified (principal); I50.30 Unspecified diastolic (congestive) heart failure; R41.3 Other amnesia; R55 Syncope and collapse; D50.9 Iron deficiency anemia, unspecified | CPT/HCPCS: 99203; 99204 ==

== ENCOUNTER 2023-12-20 12:52 | Outpatient (CLI) | payer MEDICARE, OTHER, SELFPAY | END 2023-12-20 12:53 | disposition home or self-care (01) | PROVIDERS: PCP Family Medicine; Visit Provider Psychiatry & Neurology Neurology | DX: E55.9 Vitamin D deficiency, unspecified (principal); I50.30 Unspecified diastolic (congestive) heart failure; R55 Syncope and collapse; R41.3 Other amnesia | CPT/HCPCS: 36415; 82306; 82542; 82607; 82746; 83921; 84439; 84443; 84481; 86592 ==

== ENCOUNTER → 2023-12-26 07:55 | Outpatient (BNVA) | payer MEDICARE, OTHER, SELFPAY | PROVIDERS: PCP Family Medicine; Visit Provider Internal Medicine Rheumatology | DX: M19.90 Unspecified osteoarthritis, unspecified site (principal); Z79.899 Other long term (current) drug therapy; Z71.85 Encounter for immunization safety counseling; Z11.1 Encounter for screening for respiratory tuberculosis; Z11.59 Encounter for screening for other viral diseases; Z82.61 Family history of arthritis; Z96.651 Presence of right artificial knee joint; Z96.642 Presence of left artificial hip joint; M79.641 Pain in right hand; M79.642 Pain in left hand; M79.671 Pain in right foot; M79.672 Pain in left foot | CPT/HCPCS: 36415; 73130; 73630; 80076; 82565; 86140; 99204 ==

== ENCOUNTER 2023-12-27 11:45 | Outpatient (CLI) | payer MEDICARE, OTHER, SELFPAY ==
[2023-12-27 13:15] LABS: Basophils % 0.2 %; Hematocrit 39.2 % (36-47); Lymphocytes # 0.7 10^3/uL (0.8-4.8); Lymphocytes % 14.8 %; Mean Corpuscular HGB Conc 32.4 g/dL (30-55); Mean Corpuscular Hemoglobin 29.4 pg (27-33); Mean Corpuscular Volume 90.7 fl (85-98); Monocytes # 0.2 10^3/uL (0.2-0.9); Monocytes % 4.5 %; Neutrophils # 3.91 10^3/uL (1.8-7.7); Neutrophils % 80.1 %; Nucleated Red Blood Cells % 0 %; Platelet Count 383 10^3/cmm (157-399); Red Blood Count 4.32 10^6/uL (3.85-5.65); Red Cell Distribution Width 13.4 % (12.1-15.1); White Blood Count 4.88 10^3/uL (3.29-11.43)
[2023-12-27 13:36] LABS: Erythrocyte Sedimentation Rate 25 mm/hr (0-15)
[2023-12-27 13:56] LABS: Hepatitis B Core AB, Total Non-Reactive (Nonreactive); Hepatitis B Surface Antigen Non-Reactive (Nonreactive); Hepatitis C Virus Antibody Non-Reactive (Nonreactive)
[2023-12-27 13:58] LABS: 25 Hydroxy Vitamin D 36 ng/mL (30-100)
== END 2023-12-27 11:46 | disposition home or self-care (01) ==
LOC: LAB 11:47
PROVIDERS: PCP Family Medicine; Visit Provider Internal Medicine Rheumatology
DX: Z79.899 Other long term (current) drug therapy (principal); M19.90 Unspecified osteoarthritis, unspecified site
CPT/HCPCS: 36415; 82306; 85025; 85651; 86200; 86431; 86480; 86704; 86803; 87340

== ENCOUNTER → 2024-01-05 09:43 | Outpatient (BNVA) | payer MEDICARE, OTHER, SELFPAY | PROVIDERS: PCP Family Medicine; Visit Provider Internal Medicine Cardiovascular Disease | DX: R07.9 Chest pain, unspecified (principal) | CPT/HCPCS: 93005; 99205 ==

== ENCOUNTER 2024-02-14 07:56 | Outpatient (CLI) | payer MEDICARE, OTHER, SELFPAY ==
--- NOTE | 2024-02-14 09:00 | USCV_ITS ---
Anny Crystal Age: 69 Gender: F : 1955 Exam Date: 02/14/2024 08:05 Ordering Phys: Juan Carlos Lynn MD Technologist: MISTI Exam Location: [facility] Indication: SYNCOPE Risk Factors: Previous Vascular Surgery: Right Brachial BP: / Left Brachial BP: / Right Left Velocity (cm/s) Spectral Plaque Velocity (cm/s) Spectral Plaque Syst/Diast Broadening Syst/Diast Broadening 93.20/ 18.00 Prox CCA 101.90/ 20.00 115.20/29.70 Mid CCA 98.80 / 23.00 90.40/ 20.60 Distal CCA 78.90 / 16.80 48.30/ 15.60 Prox ICA 77.70 / 14.60 45.90/ 14.70 Mid ICA 65.00 / 16.10 45.20/ 17.50 Distal ICA 58.40 / 24.10 66.70 ECA 87.70 0.50 ICA/CCA 1.00 Antegrade Vertebral Antegrade 43.10/ 11.60 cm/s 45.60/ 13.50 cm/s Tri Subclavian Tri 120.5 162.3 0 0 FINDINGS Comparison: none available. No significant elevation of systolic or diastolic velocities. Waveforms are normal. No significant amount of calcified plaque or intimal thickening identified. CONCLUSIONS Normal carotid doppler ultrasound. Dr. Radha Baldwin DO (Electronically Signed) Final Date: 14 February 2024 09:37 S
== END 2024-02-14 07:57 | disposition home or self-care (01) ==
LOC: RAD 07:57
PROVIDERS: PCP Family Medicine; Visit Provider Psychiatry & Neurology Neurology
DX: R55 Syncope and collapse (principal); I50.30 Unspecified diastolic (congestive) heart failure; R41.3 Other amnesia
CPT/HCPCS: 93880

== ENCOUNTER → 2024-04-10 11:22 | Outpatient (BNVA) | payer MEDICARE, OTHER, SELFPAY | PROVIDERS: PCP Family Medicine; Visit Provider Internal Medicine | DX: R07.89 Other chest pain (principal); R00.2 Palpitations; I49.8 Other specified cardiac arrhythmias; R06.02 Shortness of breath; I10 Essential (primary) hypertension | CPT/HCPCS: 99214 ==

== ENCOUNTER 2024-04-17 05:37 | Outpatient (CLI) | payer MEDICARE, OTHER, SELFPAY ==
[2024-04-17] VITALS (41 sets, daily range): BP systolic 110–163; BP diastolic 68–91; PULSE 57–85; RESP 6–23; TEMP 36.6–37.1; O2SAT 91–98; BMI 29.2; BMI 30.7
--- NOTE | 2024-04-17 06:06 | XACV_ITS ---
Exam Room: [facility] Ht: 157 cm Wt: 73 kg BSA: 1.81 m2 Gender: Female : 1955 Any Known Allergies: No known allergies Exam Priority: Routine Procedure(s): Procedure Description: Diagnostic procedure Procedure Description: PCI procedure Procedure Description: Left Heart Catheterization Procedure Description: Drug Eluting Coronary Stent Procedure Description: PTCA Procedure Description: Miscellaneous Procedure Description: ACT Procedure Description: Coronary Angiography Diagnostic Cath Status: Elective Diagnostic Findings * Left Main has no significant disease. * Circumflex has mild luminal irregularities. * Right Coronary Artery has luminal irregularities. * Mid Left Anterior Descending: severe 90% stenosis, NIGEL: 3 flow. * Coronary angiography shows right dominance. PCI Status: Elective PCI Indication: Other Interventional Findings * Mid Left Anterior Descendin% stenosis treated with a MDT NC EUPHORA RX [id number] BALLOON, MDT R ANGELA 3.0X22 LUIS, and MDT NC EUPHORA RX [id number] BALLOON. * Procedure detail: We engaged left main artery with XB guide catheter. IV heparin was administered to maintain anticoagulation. Runthrough guide wire was used to cross the stenosis. We then predilated the lesion with 2.75x 12 mm NC balloon. This was followed by placement of 3.0x22 resolute angela LUIS. We post dilated the stent with a [id number] NC balloon. At this final angiogram was performed that showed excellent stent expansion, NIGEL 3 flow and no residual stenosis. Guidewire and guide catheter were removed. Patient left the laborer steel handling in a stable condition. Conclusions 1. Severe mid LAD stenosis s/p successful revascularization with 1 stent. 2. Mid Left Anterior Descending was treated with a Balloon, Drug Eluting Stent, and Balloon. Recommendations * Dual antiplatelet therapy with aspirin and plavix. * High intensity statin therapy. * Outpatient cardiology follow up in 2 weeks. Interventional RX Recommendation: PCI w/o planned CABG Diagnostic RX Recommendation: PCI w/o planned CABG Pressures Phase:Rest AO : 149 / 81 ( 108 ) @ 8:02:00 AM 148 / 81 ( 107 ) @ 8:02:00 AM 109 / 55 ( 78 ) @ 8:25:00 AM LV : 144 / -15 / 12 @ 8:02:00 AM 148 / -15 / 12 @ 8:02:00 AM Valves Phase:DefaultPhase AV : 0.0 @ 9:09:47 AM AV Mean Gradient: 0.0 @ 9:09:47 AM Clinical Evaluation EBL: 5mL-10mL Procedural Details Procedure Consent Obtained. Admit Source: Out Patient. Pre-Procedure Time Out. Identified patient by full name and date of as verbalized by the patient/guarantor. Does the consent match the physician's order: Yes. Accurate & Complete Informed Consent: Yes. Inpatient/Outpatient History & Physical on Chart: Yes. If H&P is completed, is and addenduem needed: No; If yes, is the addendum complete: No. Visualize and Verify Site with Patient/Guarantor: N/A. Relevant Radiology Images available: No. The risks, benefits, and alternatives of sedation and/or procedure were discussed by physician. The patient agrees to continue. Procedure started. [facility] Clinical Fraility Score: 4: Vulnerable. 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 Chest Pain Symptom Assessment: Typical Angina Symptoms. Correct patient, site and procedure confirmed by cath team. Current diagnosis: Chest Pain. PERRLA. 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 Lungs clear x 5 lobes. IV Site on Arrival: 20 gauge in the left anticubital. IV Fluids: 0.9% NaCl at KVO. 0 mL infused prior to laborer steel handling. Pre Procedural Pulses: bilateral radial was 3+. Pre Procedural Pulses: bilateral posterior tibial was 2+. Pre Procedural Pulses: right dorsalis pedis was 1+. Pre Procedural Pulses: left dorsalis pedis was Doppled. Oxygen started at 2liters/min via nasal canula. right groin was prepped with chloroprep then draped in the usual sterile fashion. right radial was prepped with chloroprep then draped in the usual sterile fashion. Physician notified. Baseline sample Acquired. HR: 73 BPM. Physician arrived. Physician scrubbed in. Immediate Pre-Procedure Time Out. Correct Patient: Yes; Correct Procedure: Yes; Correct Site: Yes; Correct Patient Position: Yes; Correct Supplies: Yes; Dried Flammable Prep: Yes; Blood Products Available: No;. Lidocaine 1% infiltrated to the right radial. Arterial access obtained. Lidocaine 1% infiltrated to the right radial. A 5 british TIG catheter in over wire. EDP Sample taken: LV 144/-16,12; HR: 64 BPM; SpO2: 100%. Pullback taken: LV 148/-16,12; AO 149/81(108); Mean: 0mmHg, Peak to Peak: 0mmHg, SEP: 6sec/min; HR: 64 BPM; SpO2: 99%. Catheter removed over the exchange wire. A 5 british JR4 catheter in over wire. Catheter removed over the exchange wire. Wire out. Due to tortuosity , unable to engage catheters. Radial procedure aborted. A TR Band was successful obtaining hemostatsis at the Right Radial artery insertion site. Lidocaine 1% infiltrated to the right groin. Lidocaine 1% infiltrated to the right groin. Ultrasound obtained to assist with arterial access. Lidocaine 1% infiltrated to the right groin. Arterial access obtained with micropuncture set. A 5 british JL3.5 catheter in over wire. Multiple views taken of left coronary artery. Catheter removed over the exchange wire. A 5 british JR4 catheter in over wire. Multiple views taken of right coronary artery. Catheter removed over the exchange wire. Add inventory: Co-sdv pilot/navigator/dds operator, Endoflator. 6 british XB 3.5 guide catheter was inserted over the wire. Guide catheter out. 6 british XB 3 guide catheter was inserted over the wire. Runthrough guidewire was advanced through the guide catheter to lesion in the mid LAD. Guidewire advanced across lesion. Balloon inserted to lesion in the mid LAD. Inflation number : 1 A MDT NC EUPHORA RX [id number] BALLOON was prepped and advanced across the Mid LAD , then inflated to 12 NIKI for 0:11 seconds. Inflation number: 2 The MDT NC EUPHORA RX [id number] BALLOON was reinflated across the Mid LAD, to 12 NIKI for 0:11 seconds. Balloon out. Results checked. Stent inserted to lesion in the mid LAD. Inflation Number : 3 A MDT R ANGELA 3.0X22 LUIS -Lot Number# [id number] EXP 10-28-2025 was prepped and advanced across the Mid LAD. The stent was deployed at 12 NIKI for 0:16 seconds. Stent balloon out over wire. Results checked. Balloon inserted to lesion in the mid LAD. Inflation number : 4 A MDT NC EUPHORA RX [id number] BALLOON was prepped and advanced across the Mid LAD , then inflated to 18 NIKI for 0:17 seconds. Balloon out. Results checked. Wire out. Results checked. ACT drawn. Results 270 seconds. Therapeutic limits - pre-heparin administration 90-150 seconds and monitoring heparin during a vascular procedure >250 seconds. Guide catheter out. A Right femoral angiogram was performed to determine safe placement of closure device. Lidocaine 1% infiltrated to the right groin. A Angio-Seal VIP (St. Eh) was successful obtaining hemostatsis at the Right Femoral artery insertion site. LOT # [id number] EXP 10-24-2024. Physician scrubbed out. Post Procedure: Pulses reassessed and unchanged. PERRLA. 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 No VTE prophylaxis required. Medication's Wasted: Nitro = 49.8 mg. Medication's Wasted: Heparin = 3000 units. Total IV fluids: 75 mL. Post-op diagnosis: Severe Mid LAD stenosis, status post PCI placement of 1 stent. Complications: None. Estimated blood loss: 5mL-10mL. Responsiveness - Normal response to verbal stimuli; alert and oriented, PERRLA. Airway - Unaffected, no intervention required; spontaneous ventilation. Circulation: W/N/L, pulses unchanged. Nausea/Vomiting: No. Procedure completed. Patient transferred by bed to 1st floor. Vital chart was stopped. Access Site Site: Right Radial artery Sheath Size: 6 Fr Hemostasis Method: TR Band Hemostasis Success: Successful Site: Right Femoral artery Sheath Size: 6 Fr Hemostasis Method: Angio-Seal VIP (St. Eh) Hemostasis Success: Successful Procedure Medications Start: 7:52 AM Stop: 7:52 AM Medication: Versed Amount: 1 mg Route: I.V. Start: 7:52 AM Stop: 7:52 AM Medication: Fentanyl Amount: 25 mcg Route: I.V. Start: 7:56 AM Stop: 7:56 AM Medication: Versed Amount: 1 mg Route: I.V. Start: 7:57 AM Stop: 7:57 AM Medication: Fentanyl Amount: 25 mcg Route: I.V. Start: 7:59 AM Stop: 7:59 AM Medication: Nitrogylcerin Amount: 200 mcg Route: I.A. Start: 8:01 AM Stop: 8:01 AM Medication: Versed Amount: 1 mg Route: I.V. Start: 8:02 AM Stop: 8:02 AM Medication: Heparin Amount: 5000 units Route: I.V. Start: 8:11 AM Stop: 8:11 AM Medication: Fentanyl Amount: 25 mcg Route: I.V. Start: 8:12 AM Stop: 8:12 AM Medication: Fentanyl Amount: 25 mcg Route: I.V. Start: 8:16 AM Stop: 8:16 AM Medication: Versed Amount: 1 mg Route: I.V. Start: 8:23 AM Stop: 8:23 AM Medication: Heparin Amount: 2000 units Route: I.V. Start: 8:38 AM Stop: 8:38 AM Medication: Versed Amount: 1 mg Route: I.V. Start: 8:43 AM Stop: 8:43 AM Medication: Versed Amount: 1 mg Route: I.V. Start: 8:44 AM Stop: 8:44 AM Medication: Heparin Amount: 1000 units Route: I.V. Start: 8:46 AM Stop: 8:46 AM Medication: Plavix Amount: 600 mg Route: P.O. I, the attending physician, have reviewed and verified all procedure medications. Yes, all medications given per verbal order History/Risk Factors Hypertension: Yes Dyslipidemia: Yes Peripheral Arterial Disease (PAD): No Myocardial Infarction (MN): No Obesity: No Renal Disease: No Tobacco Use: Never Prior Interventions PCI: No CABG: No Valve Surgery: No Report Signatures Finalized by Bryan Carroll MD on 04/22/2024 12:46 PM
[2024-04-17 06:18] LABS: Basophils % 0.3 %; Eosinophils # 0.2 10^3/uL (0.0-0.8); Eosinophils % 2.5 %; Hematocrit 39.6 % (36-47); Lymphocytes # 2.1 10^3/uL (0.8-4.8); Mean Corpuscular HGB Conc 32.3 g/dL (30-55); Mean Corpuscular Hemoglobin 30.5 pg (27-33); Mean Corpuscular Volume 94.5 fl (85-98); Mean Platelet Volume 9.1 fL (7.4-10.4); Monocytes # 1.1 10^3/uL (0.2-0.9); Monocytes % 17.3 %; Neutrophils # 3.05 10^3/uL (1.8-7.7); Neutrophils % 46.9 %; Nucleated Red Blood Cells % 0 %; Platelet Count 327 10^3/cmm (157-399); Red Blood Count 4.19 10^6/uL (3.85-5.65); Red Cell Distribution Width 12.3 % (12.1-15.1); White Blood Count 6.49 10^3/uL (3.29-11.43)
[2024-04-17] MEDS: diphenhydrAMINE 50 mg Capsule PO (06:27)
[2024-04-17 06:36] LABS: Blood Urea Nitrogen 20 mg/dL (8-23); Calcium 9.6 mg/dL (8.5-10.5); Carbon Dioxide 25 mmol/L (22-29); Chloride 104 mmol/L (98-107); Creatinine Clr Calc Pharmacy 62.7831; Glomerular Filtration Rate 99.4 mL/min (90-130); Glucose 102 mg/dL (65-115); Osmolality Calculated 295 mOsm/kg (285-295); Sodium 141 mmol/L (136-145)
--- NOTE | 2024-04-17 07:44 | W.PM.OPSUD ---
Surgery/Procedure H&P Update DATE OF PROCEDURE: April 17, 2024 DATE H&P PERFORMED: 04/10/24 H&P UPDATE INFORMATION: I have reviewed H&P completed within last 30 days, I have examined patient prior to procedure and No changes to prior documentation PREOP DIAGNOSIS: Worsening angina PRIMARY INDICATION FOR PROCEDURE: Worsening angina PLANNED PROCEDURE: Operation Date: 04/17/24 07:00 Proposed Procedures p Cardiac Catheterization - [facility] w/wo LV & Coros(Left) - Bryan Carroll M.D Possible percutaneous coronary intervention PATIENT REASSESSED PRIOR TO SEDATION, WITH NO CHANGE NOTED: Yes PHYSICAL EXAM: alert, oriented x 3, clear to auscultation bilaterally and regular rate & rhythm AIRWAY EVAL/ANESTHESIA PLAN: normal airway, ASA III, Local Anesthesia, Risks, benefits & alternatives of sedation and/or procedure discussed and Patient agrees to continue as planned ADDITIONAL INFORMATION: Moderate sedation
--- NOTE | 2024-04-17 08:48 | P.PCN_ITS ---
Procedure Note: Date of procedure: 04/17/24 Pre-procedure diagnosis: Worsening angina Post-procedure diagnosis: other (Severe mid LAD stenosis s/p PCI with 1 stent) Procedure: Left heart cath: No significant disease seen in left main artery, left circumflex artery and RCA. Mid LAD had severe 90% stenosis. Status post successful revascularization with 1 stent. Patient will be put on dual antiplatelet therapy with aspirin and Plavix. High intensity statin therapy. Performing Provider: Bryan Carroll Estimated blood loss (mL): 10 Complications: None Condition: stable Disposition: floor Coding Level [facility]
[2024-04-17] MEDS: sodium chloride 0.9% 1,000 ML 75 ML IV (09:00)
--- NOTE | 2024-04-17 17:12 | PC.NURSE ---
received from cardiac propagator laborer via bed at 0900,in to room 111-2.report received.pt is sleepy but easily awakened to name.denies pain.sr on monitor.right femoral arterial sheath was removed by propagator laborer and closure device (angioseal) was inserted.right groin drsg is dry and intact.no hematoma noted.right leg is warm to touch and with brisk capillary refill.palpable dp pulse noted.right radial tr band intact and inflated.right hand is warm to touch and with brisk capillary refill.palpable radial pulse noted distal to tr band.no hematoma noted.pt instructed in activity restrictions s/p right femoral and right radial arterial artery procedures...and instructed to notify staff for any bleeding,pain,numbness,sob,or for any concerns at all.pt verb understanding of instructions
[2024-04-17] MEDS: carvedilol 12.5 mg Tablet PO (17:27)
--- NOTE | 2024-04-17 20:04 | PC.NURSE ---
Spoke with regarding need for admission orders. ordered for pt to be outpatient in a bed.
[2024-04-18 03:23] LABS: Basophils % 0.5 %; Eosinophils # 0.1 10^3/uL (0.0-0.8); Eosinophils % 1.8 %; Hematocrit 39.7 % (36-47); Lymphocytes # 1.8 10^3/uL (0.8-4.8); Lymphocytes % 27.8 %; Mean Corpuscular HGB Conc 31.5 g/dL (30-55); Mean Corpuscular Hemoglobin 31.1 pg (27-33); Mean Corpuscular Volume 98.8 fl (85-98); Monocytes # 1.1 10^3/uL (0.2-0.9); Monocytes % 15.8 %; Neutrophils # 3.58 10^3/uL (1.8-7.7); Neutrophils % 53.9 %; Nucleated Red Blood Cells % 0 %; Platelet Count 290 10^3/cmm (157-399); Red Blood Count 4.02 10^6/uL (3.85-5.65); Red Cell Distribution Width 12.1 % (12.1-15.1); White Blood Count 6.63 10^3/uL (3.29-11.43)
[2024-04-18 03:43] LABS: Anion Gap 16.2 (5-19); Blood Urea Nitrogen 14 mg/dL (8-23); Calcium 9.1 mg/dL (8.5-10.5); Carbon Dioxide 23 mmol/L (22-29); Chloride 105 mmol/L (98-107); Creatinine Clr Calc Pharmacy 64.3255; Glomerular Filtration Rate 122.7 mL/min (90-130); Glucose 102 mg/dL (65-115); Osmolality Calculated 291 mOsm/kg (285-295); Potassium 4.2 mmol/L (3.5-5.1); Sodium 140 mmol/L (136-145)
[2024-04-18 04:11] VITALS: BP 142/80; PULSE 72; RESP 13; TEMP 36.9; O2SAT 98
[2024-04-18 05:46] VITALS: PULSE 59
[2024-04-18 08:00] VITALS: BP 163/90; PULSE 70; RESP 20; TEMP 37; O2SAT 96
[2024-04-18] MEDS: carvedilol 12.5 mg Tablet PO (08:04)
[2024-04-18] MEDS: amlodipine 10 mg Tablet PO (08:04)
[2024-04-18] MEDS: atorvastatin 40 mg Tablet PO (08:04)
[2024-04-18] MEDS: aspirin 81 mg EC Tablet PO (08:05)
[2024-04-18] MEDS: pantoprazole DR 40 mg Tablet PO (08:05)
[2024-04-18] MEDS: lisinopril 20 mg Tablet PO (08:05)
[2024-04-18] MEDS: folic acid 1 mg Tablet PO (08:05)
[2024-04-18] MEDS: clopidogrel 75 mg Tablet PO (08:05)
--- NOTE | 2024-04-18 08:22 | PM.DCS ---
Discharge Providers Date of Admission: 04/17/2024 Date of Discharge: April 18, 2024 Attending Provider at Admission: Bryan Carroll MD Attending Provider at Discharge: Bryan Carroll M.D Primary Care Provider: Constance Rodríguez MD Reason for Visit Reason for Visit: R06.09 Brief History: 69 year old woman with PMH of HTN who has been having typical worsening angina. Plan for coronary angiogram with possible PCI. Hospital Course Hospital Course Coronary angiogram showed severe mid LAD stenosis and underwent successful revascularization with 1 stent. She stayed overnight and was stable. Discharged home in a stable condition on dual antiplatelet therapy. Physical Exam Narrative: GENERAL: Patient is alert, awake and oriented x3. [] NECK: No jugular vein distension. [] HEENT: No cyanosis. No icterus. No pallor. [] HEART: Regular S1 and S2. No murmur, rub or gallop. [] LUNGS: Clear to auscultate bilaterally. [] CENTRAL NERVOUS SYSTEM: Grossly nonfocal. 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 Routine Exams 04/17/24 06:06 Taken Laboratory Results WBC 6.63 10^3/uL (3.29-11.43) 04/18/24 03:15 RBC 4.02 10^6/uL (3.85-5.65) 04/18/24 03:15 Hgb 12.50 g/dL (11.27-16.99) 04/18/24 03:15 Hct 39.7 % (36-47) 04/18/24 03:15 MCV 98.8 fl (85-98) H 04/18/24 03:15 MCH 31.1 pg (27-33) 04/18/24 03:15 MCHC 31.5 g/dL (30-55) 04/18/24 03:15 RDW 12.1 % (12.1-15.1) 04/18/24 03:15 Plt Count 290 10^3/cmm (157-399) 04/18/24 03:15 MPV 9.0 fL (7.4-10.4) 04/18/24 03:15 Neut % (Auto) 53.9 % 04/18/24 03:15 Lymph % (Auto) 27.8 % 04/18/24 03:15 [place] % (Auto) 15.8 % 04/18/24 03:15 Eos % (Auto) 1.8 % 04/18/24 03:15 Baso % (Auto) 0.5 % 04/18/24 03:15 Neut # (Auto) 3.58 10^3/uL (1.8-7.7) 04/18/24 03:15 Lymph # (Auto) 1.8 10^3/uL (0.8-4.8) 04/18/24 03:15 [place] # (Auto) 1.1 10^3/uL (0.2-0.9) H 04/18/24 03:15 Eos # (Auto) 0.1 10^3/uL (0.0-0.8) 04/18/24 03:15 Baso # (Auto) 0.0 10^3/uL (0.0-0.1) 04/18/24 03:15 Nucleated RBC % (auto) 0 % 04/18/24 03:15 Nucleated RBCs # 0.0 /100WBC 04/18/24 03:15 Sodium 140 mmol/L (136-145) 04/18/24 03:15 Potassium 4.2 mmol/L (3.5-5.1) 04/18/24 03:15 Chloride 105 mmol/L (98-107) 04/18/24 03:15 Carbon Dioxide 23 mmol/L (22-29) 04/18/24 03:15 Anion Gap 16.2 (5-19) 04/18/24 03:15 BUN 14 mg/dL (8-23) 04/18/24 03:15 Creatinine 0.5 mg/dL (0.5-0.9) 04/18/24 03:15 GFR Calculation 122.7 mL/min (90-130) 04/18/24 03:15 Glucose 102 mg/dL (65-115) 04/18/24 03:15 Calculated Osmolality 291 mOsm/kg (285-295) 04/18/24 03:15 Calcium 9.1 mg/dL (8.5-10.5) 04/18/24 03:15 Vitals Last Vital Signs Temp 98.6 F 04/18/24 08:00 Pulse 70 04/18/24 08:00 Resp 20 H 04/18/24 08:00 BP 163/90 04/18/24 08:00 Pulse Ox 96 04/18/24 08:00 O2 Del Method Room Air 04/18/24 08:00 Discharge Plan Discharge Patient Disposition: Home Prescriptions: New clopidogrel 75 mg Tablet 75 mg PO DAILY Qty: 90 3RF No Action multivitamin [One-A-Day Essential] Tablet 1 tab PO DAILY omeprazole 40 mg capsule,delayed release(DR/EC) 40 mg PO DAILY meloxicam 15 mg tablet 15 mg PO DAILY Hold Instructions: Resume on 08/15/20. Resume after completion of Celebrex acetaminophen [Tylenol Extra Strength] 500 mg tablet 500 mg PO Q6H PRN (Reason: Pain) amlodipine-benazepril [Lotrel] 10-20 mg capsule 1 cap PO DAILY atorvastatin [Lipitor] 40 mg tablet 40 mg PO DAILY aspirin 81 mg tablet,delayed release (DR/EC) 81 mg PO DAILY folic acid 1 mg tablet 1 mg PO DAILY Qty: 30 5RF lisinopril 5 mg tablet 5 mg PO DAILY Qty: 90 3RF carvedilol 12.5 mg tablet 12.5 mg PO BID Qty: 180 3RF Rx Instructions: must administer with a meal/food Discharge Orders: Discharge Order (Routine); Ordered 04/18/24 Ordered By: Bryan Carroll Referrals: Constance Rodríguez MD [Primary Care Provider] - Jenn Peters NP [Nurse Practitioner] - 04/25/24 3:45 pm Diet: Cardiac Activity: Resume usual activity Patient Instructions: Clopidogrel (By mouth) (Plavix), Coronary Angioplasty (DC), Post Angiogram Home Care Instructions Discharge Date/Time: 04/18/24 09:00 Discharge Attestations Time Spent in Discharge Care*: less than 30 min Quality Metrics Clinical Quality Measures [ No reported AMI, CVA or VTE this stay] Coding Level of Care Code Acute Code for [facility]
--- NOTE | 2024-04-18 08:57 | PC.NURSE ---
Patient discharged to home. Instruction provided regarding site care, follow up appointment and new medications. Stent card given to patient. Patient and spouse both verbalized complete understanding. Dressings to right radial and right femoral remain c,d,i without s/s of bleeding or hematoma formation observed. Patient taken by wheelchair to private vehicle. Denies pain or needs. No distress observed.
== END 2024-04-18 09:00 | disposition home or self-care (01) ==
LOC: CCL 05:37 → CSU 14:32
PROVIDERS: Nurse Practitioner Family; PCP Family Medicine; Visit Provider Internal Medicine
DX: I25.10 Atherosclerotic heart disease of native coronary artery without angina pectoris (principal); I10 Essential (primary) hypertension; E78.5 Hyperlipidemia, unspecified; K21.9 Gastro-esophageal reflux disease without esophagitis
CPT/HCPCS: 36415; 80048; 85025; 85347; 93458; 96374; 99152; 99153; C1725; C1760; C1769; C1874; C1887; C1894; C9600; G0269; J1644; J2250; J3010; J3490; J7030; Q0163; Q9967

== ENCOUNTER → 2024-04-25 16:00 | Outpatient (BNVA) | payer MEDICARE, OTHER, SELFPAY | PROVIDERS: PCP Family Medicine; Visit Provider Nurse Practitioner Family | DX: R07.89 Other chest pain (principal) | CPT/HCPCS: 93005; 99213 ==

== ENCOUNTER → 2024-05-23 09:49 | Outpatient (BNVA) | payer MEDICARE, OTHER, SELFPAY | PROVIDERS: PCP Family Medicine; Visit Provider Nurse Practitioner Family | DX: I25.10 Atherosclerotic heart disease of native coronary artery without angina pectoris (principal); I10 Essential (primary) hypertension; R00.1 Bradycardia, unspecified; R53.83 Other fatigue; M54.9 Dorsalgia, unspecified | CPT/HCPCS: 99214 ==

== ENCOUNTER → 2024-06-13 09:50 | Outpatient (BNVA) | payer MEDICARE, OTHER, SELFPAY | PROVIDERS: PCP Family Medicine; Visit Provider Nurse Practitioner | DX: M19.011 Primary osteoarthritis, right shoulder (principal); Z98.890 Other specified postprocedural states | CPT/HCPCS: 73030; 99214 ==

== ENCOUNTER 2024-06-18 09:06 | Outpatient (CLI) | payer MEDICARE, OTHER, SELFPAY ==
--- NOTE | 2024-06-18 09:55 | USCV_ITS ---
Anny Crystal Age: 69 Gender: F : 1955 Exam Date: 06/18/2024 09:38 Ordering Phys: Marla Cantu Technologist: JOEY [place] [facility] [place]: LAD Stent, Fatigue BP: 165 / 97 HR: 60 Rhythm: Sinus Technical Quality: Adequate MEASUREMENTS (Male / Female) Normal Values 2D ECHO LV Diastolic Diameter PLAX 4.5 cm 4.2 - 5.9 / 3.9 - 5.3 cm IVS Diastolic Thickness 1.2 cm 0.6 - 1.0 / 0.6 - 0.9 cm IVS Systolic Thickness 1.5 cm LVPW Diastolic Thickness 1.3 cm 0.6 - 1.0 / 0.6 - 0.9 cm LVPW Systolic Thickness 2.1 cm LVOT Diameter 1.9 cm LV Ejection Fraction 2D Teich 65.6 % LV Ejection Fraction MOD 4C 59.0 % LV Ejection Fraction MOD 2C 70.3 % LV Ejection Fraction 2C AL 73.7 % LA Diameter 4.6 cm RA Systolic Volume 4C AL 26.5 ml RA Systolic Volume 4C MOD 25.2 ml LA Sys Volume AL 39.3 cm cubed LA Sys Volume Index AL 22.5 cm cubed/m squared Aorta at Sinotubular Diameter 2.5 cm IVC Diameter 1.6 cm M-MODE LA Ao Ratio MM 2.0 AV Cusp Separation MM 1.2 cm DOPPLER AV Peak Velocity 158.0 cm/s LVOT Peak Velocity 93.0 cm/s AV Area Cont Eq vti 1.8 cm squared AV Area Cont Eq pk 1.7 cm squared MV Peak Velocity 122.0 cm/s MV Area PHT 2.4 cm squared Mitral E to A Ratio 0.9 TV Peak Velocity 279.0 cm/s TR Peak Velocity 315.0 cm/s TR Peak Gradient 39.7 mmHg TV Peak E Velocity 116.0 cm/s PV Peak Velocity 101.0 cm/s FINDINGS Left Ventricle Left ventricle is normal in size. LV systolic function is normal with EF of 55-60%. No regional wall motion abnormalities are seen. Right Ventricle Normal in size and function Right Atrium Normal in size Left Atrium Normal in size Mitral Valve Structurally normal mitral valve. Mild mitral regurgitation. Aortic Valve Structurally normal aortic valve. No significant stenosis or regurgitation. Tricuspid Valve Mild tricuspid regurgitation. Insufficient TR jet to calculate RVSP Pulmonic Valve Not well visualized Pericardium Normal Aorta Normal in size IVC Appears to be normal CONCLUSIONS LV systolic function is normal with EF of 55-60% Mild mitral regurgitation Mild tricuspid regurgitation Bryan Carroll MD (Electronically Signed) Final Date: 24 June 2024 10:11 S
== END 2024-06-18 09:07 | disposition home or self-care (01) ==
LOC: RAD 09:09
PROVIDERS: PCP Family Medicine; Visit Provider Nurse Practitioner Family
DX: R07.9 Chest pain, unspecified (principal); I34.0 Nonrheumatic mitral (valve) insufficiency; I07.1 Rheumatic tricuspid insufficiency
CPT/HCPCS: 93306

== ENCOUNTER → 2024-06-19 12:22 | Outpatient (BNVA) | payer MEDICARE, OTHER, SELFPAY | PROVIDERS: PCP Family Medicine; Visit Provider Nurse Practitioner Family | DX: I25.10 Atherosclerotic heart disease of native coronary artery without angina pectoris (principal); I10 Essential (primary) hypertension | CPT/HCPCS: 99213 ==

== ENCOUNTER 2024-07-26 07:35 | Outpatient (CLI) | payer MEDICARE, OTHER, SELFPAY ==
--- NOTE | 2024-07-26 07:42 | MR_ITS ---
WS: [id number] MRI RIGHT SHOULDER ARTHROGRAM HISTORY: right shoulder pain. Hx RCR COMPARISON: Prior MRI 05/04/2022. TECHNIQUE: Pre and postcontrast imaging. Gadolinium mixture was injected under fluoroscopy. Coronal T1 fat sat, sagittal T2 fat sat, coronal T2 fat sat, axial proton density, axial T1 nonfat saturation are submitted. Prearthrogram: Mild AC joint arthritis and hypertrophy. No significant subacromial impingement. No os acromion. Small amount of increased fluid in the biceps tendon sheath. No biceps tendon tear or subluxation. Marked cortical irregularity with loss of cartilage surrounding the humeral head. Significant progression of degenerative changes since 2022. Subchondral cystic changes with loss of cartilage. Large fluid gap over the humeral head consistent with a progressive tear of the supraspinatus tendon. Tendon is retracted to the medial humeral head. Increasing tendinopathy in the distal subscapularis tendon. Progressive narrowing of the coracohumeral interval encroaching upon the subscapularis tendon. Infraspinatus tendon appears intact. Severe atrophy of the supraspinatus muscle. There is also mild atrophy of the subscapularis muscle which has progressed. Well-preserved infraspinatus muscle. Defect at the base of the posterior labrum. Signal abnormality in the central superior labrum. Post arthrogram: Large supraspinatus tendon tear directly over the humeral head. Large amount of contrast extravasates into the subacromial and subdeltoid bursa. Additional tear is now evident within the distal subscapularis tendon. There is contrast extending from the distal tendon interstitial. No infraspinatus tear. Contrast extends into the anterior superior labrum. Posterior labrum appears intact. No contrast extends into the posterior labrum. MR/MR shoulder RT wo/w con [id number] IMPRESSION: 1. Complete high-grade tear involving the supraspinatus tendon directly over t he humeral head. Tear is at the same location as the prior study as 05/04/2022 b ut increased in size. 2. Distal subscapularis tendon tear with interstitial extension. 3. Small amount of fluid in the biceps tendon sheath. 4. Progressive narrowing of the coracohumeral interval. 5. Severe atrophy of the supraspinatus muscle and mild atrophy subscapularis m uscle. 6. Anterior superior labral tear.
--- NOTE | 2024-07-26 08:00 | IR_ITS ---
WS: [id number] RIGHT SHOULDER ARTHROGRAM UNDER FLUOROSCOPY. PRIOR TO MRI EVALUATION. HISTORY: Right shoulder pain. Hx RCR COMPARISON: None available. FLUOROSCOPY TIME: 1min [id number] # of spot films: 4 Procedure, risks and complications were explained to the patient. Consent has been obtained. Under fluoroscopic guidance the skin is marked over the medial superior third of the humeral head, cleansed with ChloraPrep and anesthetized with lidocaine. 22- gauge spinal needle is inserted to the cortex of the humeral head. Test injection with Omnipaque reveals the needle is appropriately positioned in the joint. A mixture of 10 cc sterile saline, 5 cc Omnipaque and 0.1 mmol gadolinium are injected under fluoroscopic guidance. Patient tolerated the joint distention well. No complications. During contrast injections there is extravasation of contrast from the joint space into a large rotator cuff tear. IR/IR arthrogram shoulderRT [id number] IMPRESSION: Uncomplicated RIGHT shoulder joint injection prior to MRI.
[2024-07-26] MEDS: gadobenate dimeglumine 20 mL vial IV (09:02)
[2024-07-26] MEDS: iohexol 240 mg/mL 50 mL Btl 20 ML INTRA-ARTI (09:05)
== END 2024-07-26 07:36 | disposition home or self-care (01) ==
PROVIDERS: PCP Family Medicine; Visit Provider Nurse Practitioner
DX: M19.011 Primary osteoarthritis, right shoulder (principal); Z98.890 Other specified postprocedural states; M75.121 Complete rotator cuff tear or rupture of right shoulder, not specified as traumatic; S46.811A Strain of other muscles, fascia and tendons at shoulder and upper arm level, right arm, initial encounter; S43.401A Unspecified sprain of right shoulder joint, initial encounter; X58.XXXA Exposure to other specified factors, initial encounter; R93.7 Abnormal findings on diagnostic imaging of other parts of musculoskeletal system; M62.511 Muscle wasting and atrophy, not elsewhere classified, right shoulder; M67.813 Other specified disorders of tendon, right shoulder
CPT/HCPCS: 23350; 73223; 77002

== ENCOUNTER → 2024-07-27 09:16 | Outpatient (BNVA) | payer MEDICARE, OTHER, SELFPAY | PROVIDERS: PCP Family Medicine; Visit Provider Nurse Practitioner | DX: M75.121 Complete rotator cuff tear or rupture of right shoulder, not specified as traumatic (principal); S43.431A Superior glenoid labrum lesion of right shoulder, initial encounter; M19.011 Primary osteoarthritis, right shoulder; X58.XXXA Exposure to other specified factors, initial encounter; Z98.890 Other specified postprocedural states | CPT/HCPCS: 99214 ==

== ENCOUNTER → 2024-12-25 13:06 | Outpatient (BNVA) | payer MEDICARE, OTHER, SELFPAY | PROVIDERS: PCP Family Medicine; Visit Provider Internal Medicine | DX: R07.9 Chest pain, unspecified (principal); I49.8 Other specified cardiac arrhythmias; R06.02 Shortness of breath; I10 Essential (primary) hypertension; Z98.61 Coronary angioplasty status | CPT/HCPCS: 99214 ==

== ENCOUNTER 2025-01-03 07:13 | Outpatient (CLI) | payer MEDICARE, OTHER, SELFPAY ==
[2025-01-03 07:53] VITALS: BMI 27.4
--- NOTE | 2025-01-03 07:53 | ECG_ITS ---
[place] Test Date: 2025-01-03 Pat Name: Anny Crystal Department: Room: Gender: Female [employer] Dispatcher: : 1955 Requested By: Bryan Carroll Order Number: [id number] Reading MD: ALESHIA DIAZ Interpretive Statements Lung unchanged pre/post procedure;; Intraprocedure shortess of breath; eath; Symptoms resoled by discharge; NOTE: Please note that this is the electrocardiogram portion of the Lexiscan/Sestamibi stress test. The perfusion scan will be documented separately. DATA: Baseline heart rate was 67 beats per minute. Baseline blood pressure was 153/79 millimeters of mercury. Target heart rate was 152 maximum heart rate achieved was 104 which was 68 % of the predicted target heart rate. Maximum blood pressure was 154/85 millimeters of mercury. The reason for ending the test was [completion of the protocol]. The patient did not experience any symptoms. [] ELECTROCARDIOGRAM: BASELINE: Sinus rhythm. Normal axis. Otherwise, no ST-T changes suggestive of ischemia noted. No arrhythmia noted. [] EXERCISE: After Lexiscan injection, no ST-T changes suggestive of ischemic noted. No arrhythmia noted. [] CONCLUSION: Please note due to baseline abnormality of the EKG specificity and sensitivity of the EKG portion of LexiScan MIBI stress test will be low 1. [EKG not suggestive of ischemia] 2. [Lexiscan injection unremarkable]. 3. Perfusion scan will be documented separately. [] Electronically Signed On 01-27-2025 20:23:14 CDT by ALESHIA DIAZ [email or web address]
--- NOTE | 2025-01-03 07:54 | NMCV_ITS ---
NM maxine perf SPECT r/s* [id number] Anny Crystal Age: 69 Gender: F : 1955 Exam Date: 01/03/2025 08:27 Ordering Phys: Bryan Carroll M.D ([email or web address]) Technologist: JACK Arnett Exam Location: [facility] Indications: cp STRESS TEST Please see separate stress test report in [facility] for full findings IMAGE PROTOCOL Rest/Stress 1 Lexiscan Day Radiopharmaceutical Dose (mCi) Administration Site Administered by Rest: Tc-99m 10.5 IV JACK Arnett Sestamibi Stress:Tc-99m 32.8 IV JACK Falk Sestamibi Rest: 03-Jan-2025 60 Discovery 630 Stress: 03-Jan-2025 30 Discovery 630 0.4mg Lexiscan. Images obtained in supine and prone position. SPECT RESULTS Technical Quality: Good Raw Data Analysis: Normal Image Corrections: No attenuation or motion correction applied Summed Stress Score: 0 Summed Rest Score: 6 Summed Difference Score: 0 PERFUSION FINDINGS SPECT images demonstrate homogeneous tracer distribution throughout the myocardium. FUNCTIONAL RESULTS (calculated via Gated SPECT) Stress Image LV EF (%): 68 Stress EDV (mL):107 TID: 0.91 Stress ESV (mL):34 FUNCTIONAL FINDINGS: There is normal left ventricular systolic function. IMPRESSIONS Myocardial perfusion imaging is normal. Penelope Mcdaniel MD (Electronically Signed) Final Date: 07 January 2025 15:04 S
[2025-01-03 09:17] VITALS: BP 130/71; PULSE 89
== END 2025-01-03 07:14 | disposition home or self-care (01) ==
LOC: CDL 07:14
PROVIDERS: PCP Family Medicine; Visit Provider Internal Medicine
DX: R07.9 Chest pain, unspecified (principal); R06.02 Shortness of breath
CPT/HCPCS: 36415; 78452; 93017; 96374; A9500; J2785